=== PATIENT | female | born 1985 | race Caucasian/White ===

== ENCOUNTER 2024-09-27 15:13 | Inpatient (IN) | payer BC, MEDICAID, SELFPAY ==
[2024-09-27 15:16] VITALS: BP 140/78; PULSE 91; RESP 16; TEMP 37; O2SAT 97; BMI 23.6
--- NOTE | 2024-09-27 15:24 | W.ED.PSYCHS ---
HPI - Psych General: Chief Complaint: Psychiatric Symptoms Stated Complaint: 96 Time Seen by Provider: 09/27/24 15:14 Source: patient and police Limitations: no limitations History of Present Illness: 39-year-old female who is here with police under 96-hour hold she was placed on 960 hold for hallucinations but states she has been paranoid making threats. Patient here does have loose thoughts she does admit to using methamphetamine yesterday. Denies suicidality at this time. Associated symptoms: Reports delusions Related Data Home Medications ?Medication ?Instructions ?Recorded ?Confirmed No Known Home Medications 09/27/24 09/27/24 Allergies Allergy/AdvReac Type Severity Reaction Status Date / Time celecoxib (From Celebrex) Allergy Unknown Verified 09/27/24 15:20 Review of Systems Const: Denies: fever(s), chills, body aches or change in appetite ENMT: Denies: throat pain or dental pain Card: Denies: chest pain Resp: Denies: dyspnea GI: Denies: abdominal pain, nausea, vomiting or diarrhea Musc: Denies: neck pain or back pain Skin/Breast: Denies: rash Neuro: Denies: headache(s) Psych: Reports: irritability and paranoia Physical Exam Const: COMMON NORMALS: no acute distress and patient oriented x3 HENMT: COMMON NORMALS: normocephalic and atraumatic HEAD & SCALP: normocephalic and atraumatic Eye: COMMON NORMALS: conjunctivae normal CONJUNCTIVA: Yes conjunctivae normal Neck/C-Spine: COMMON NORMALS: full ROM and supple Chest: COMMONS NORMALS: normal inspection of the chest Resp: COMMON NORMALS: normal respiratory effort Cardio: COMMON NORMALS: regular rate RATE: regular rate Extremity: COMMON NORMALS: normal to inspection and full ROM Neuro: COMMON NORMALS: patient oriented x3, moves all extremities and no focal motor deficits Psych: COMMON NORMALS: cooperative SPEECH: Yes excessive MOOD & AFFECT: Yes elevated mood THOUGHT CONTENT: Yes delusions Skin: COMMON NORMALS: no rashes or lesions noted and no wounds GENERAL SKIN EXAM: no rashes or lesions noted Course Vital Signs: Vital signs: Vital Signs Temperature 98.6 F 09/27/24 15:16 Pulse Rate 91 09/27/24 15:16 Respiratory Rate 16 09/27/24 15:16 Blood Pressure 140/78 09/27/24 15:16 Pulse Oximetry 97 04/02/25 15:16 Oxygen Delivery Me thod Room Air 09/27/24 15:16 MDM - Psych Medical Decision Making Patient presents here with acute psychosis paranoia she is placed under court ordered 96-hour hold she does have recent meth abuse as well patient is quite paranoid here spoke to psychiatrist will admit to the psych [facility]. Medical Records I reviewed the patient's medical records. Lab Data I reviewed the patient's lab results. 09/27/24 16:06 09/27/24 16:06 Laboratory Results WBC 5.42 10^3/uL (3.29-11.43) 09/27/24 16:06 RBC 3.48 10^6/uL (3.85-5.65) L 09/27/24 16:06 Hgb 11.00 g/dL (11.27-16.99) L 09/27/24 16:06 Hct 33.4 % (36-47) L 09/27/24 16:06 MCV 96.0 fl (85-98) 09/27/24 16:06 MCH 31.6 pg (27-33) 09/27/24 16:06 MCHC 32.9 g/dL (30-55) 09/27/24 16:06 RDW 12.4 % (12.1-15.1) 09/27/24 16:06 Plt Count 311 10^3/cmm (157-399) 09/27/24 16:06 MPV 8.9 fL (7.4-10.4) 09/27/24 16:06 Neut % (Auto) 43.2 % 09/27/24 16:06 Lymph % (Auto) 47.4 % 09/27/24 16:06 Childress % (Auto) 7.2 % 09/27/24 16:06 Eos % (Auto) 1.1 % 09/27/24 16:06 Baso % (Auto) 0.9 % 09/27/24 16:06 Neut # (Auto) 2.34 10^3/uL (1.8-7.7) 09/27/24 16:06 Lymph # (Auto) 2.6 10^3/uL (0.8-4.8) 09/27/24 16:06 Childress # (Auto) 0.4 10^3/uL (0.2-0.9) 09/27/24 16:06 Eos # (Auto) 0.1 10^3/uL (0.0-0.8) 09/27/24 16:06 Baso # (Auto) 0.1 10^3/uL (0.0-0.1) 09/27/24 16:06 Nucleated RBC % (auto) 0 % 09/27/24 16:06 Nucleated RBCs # 0.0 /100WBC 09/27/24 16:06 No radiology studies performed this visit Discharge Plan Discharge Patient Disposition: Admitted As Inpatient Clinical Impression: Acute psychosis, Drug-induced psychotic disorder Condition: Stable Prescriptions: No Action No Known Home Medications Referrals: [facility] [Other] Print Language: Romansh Coding Level of Care Code ED Visual Communications Instructor for Anshu Taylor
[2024-09-27 16:30] LABS: Basophils # 0.1 10^3/uL (0.0-0.1); Basophils % 0.9 %; Eosinophils # 0.1 10^3/uL (0.0-0.8); Eosinophils % 1.1 %; Hematocrit 33.4 % (36-47); Lymphocytes # 2.6 10^3/uL (0.8-4.8); Lymphocytes % 47.4 %; Mean Corpuscular HGB Conc 32.9 g/dL (30-55); Mean Corpuscular Hemoglobin 31.6 pg (27-33); Mean Platelet Volume 8.9 fL (7.4-10.4); Monocytes # 0.4 10^3/uL (0.2-0.9); Monocytes % 7.2 %; Neutrophils # 2.34 10^3/uL (1.8-7.7); Neutrophils % 43.2 %; Nucleated Red Blood Cells % 0 %; Platelet Count 311 10^3/cmm (157-399); Red Blood Count 3.48 10^6/uL (3.85-5.65); Red Cell Distribution Width 12.4 % (12.1-15.1); White Blood Count 5.42 10^3/uL (3.29-11.43)
--- NOTE | 2024-09-27 16:33 | PC.PHAR ---
Addendum entered by Janine Campbell 09/27/24 16:34: Pt is asking who her nurse is, why she is here instead of [facility], and why the transport person is not an officer. Original Note: Pt wants to use Suki Nunn E Sima Ceballos, Zheng Gutierres. [id number] [facility] [phone]
[2024-09-27 16:52] LABS: Alanine Aminotransferase 12 U/L (0-33); Albumin Level 4.2 g/dL (3.5-5.2); Alkaline Phosphatase 43 U/L (35-105); Anion Gap 13.6 (5-19); Aspartate Amino Transferase 18 U/L (0-32); Blood Urea Nitrogen 16 mg/dL (6-20); Calcium 8.7 mg/dL (8.5-10.5); Carbon Dioxide 23 mmol/L (22-29); Chloride 102 mmol/L (98-107); Creatinine Clr Calc Pharmacy 120.3444; Globulin 2.7 g/dL (1.3-4.6); Glomerular Filtration Rate 111.9 mL/min (90-130); Glucose 83 mg/dL (65-115); Osmolality Calculated 280 mOsm/kg (285-295); Potassium 3.6 mmol/L (3.5-5.1); Sodium 135 mmol/L (136-145); Total Bilirubin 0.3 mg/dL (0.15-1.2); Total Protein 6.9 g/dL (6.6-8.7)
[2024-09-27 16:53] LABS: Acetaminophen < 5.0 ug/mL (10-30); Alcohol Level < 10 mg/dL (0-10); Salicylate < 0.3 mg/dL (3-10)
--- NOTE | 2024-09-27 17:53 | PC.NURSE ---
PATIENT HAS REFUSED TO URINATE AT THIS TIME.
[2024-09-27 19:57] VITALS: BP 135/87; PULSE 80; RESP 18; TEMP 37.1; O2SAT 99
[2024-09-27] MEDS: nicotine 2 mg Gum BUCCAL (20:10)
[2024-09-27 20:13] VITALS: BP 135/87; PULSE 80; RESP 18; TEMP 37.1; O2SAT 99
--- NOTE | 2024-09-27 21:18 | PC.NURSE ---
Pt. admitted from ED on a 96 hr hold. Spouse and child report she is having hallucinations. Pt. denies any hallucinations and says she is being held against her will and does not have any idea as to why she would be here. Pt. was informed on the rules on the unit by ADAIR, the pt. then re-read the rules and was going to sign the papers, but instead began writing comments in the signature place. Pt. came up asking for a drink and signee asked if she still had her cup and signee explained that we reuse the same cup each day and pt. said ok, well that's not proper dietary protocol. Pt. answered some of the nursing assessment questions, but was unwilling to cooperative with questions. Signee explained to pt. that staff ask all pt.'s the same questions. Pt. does smell like alcohol when pt. came up to the window asking for a drink.
--- NOTE | 2024-09-28 01:11 | PC.NURSE ---
Pt. came up to the nurses station asking if she could take shower. Signee got pt. her box, towel, washcloth and directed her to the gomez shower informing her that the showers in the room did not work, pt. asked why and gildardo informed pt. that it would leak downstairs. Pt. went into the shower and asked when the last time the shower had not been cleaned. Signee informed her that the showers was cleaned once or twice a day. Pt. did not want to take a shower in that shower, and walked back down to her room. Security sitting with another pt. heard something that sounded like furniture being moved around. Signee went to do a round to observe what was going on. Pt. was looking out the window, then a few min later the WORKDAY FINANCIALS CONSULTANT does a round and pt. had turned on the shower in her room. WORKDAY FINANCIALS CONSULTANT and signee informed her that was not allowed that she had been told the showers did not work and pt. stated, but they do work, you told me they would not even turn on. All the while the shower in pt.'s room is running. Signee told pt. she could either take a shower or not in the hallway shower.
--- NOTE | 2024-09-28 01:21 | PC.NURSE ---
pt asked for items to take a shower. RN gave her the items pt then refused to use unit shower because it is dirty . Pt went to her room and was making noise this OBSTETRICS AND GYNECOLOGY PROFESSOR and RN went to pt room. Pt was acting as though she was on an ear pieece Pt then turned on shower in room after being told that it could not be used due to it leaking into the downstairs. Pt argued was RN about not being told about it leaking. Pt then closed door to her room and this OBSTETRICS AND GYNECOLOGY PROFESSOR opened door and educated pt that doors could not be fully closed. Pt then stated is that a rule? where does it say that? This OBSTETRICS AND GYNECOLOGY PROFESSOR told pt it was in her admit packet pt then asked what page is it on? Pt is now carring the pt admit inbooklet around with her.
--- NOTE | 2024-09-28 01:36 | PC.NURSE ---
Pt. just came out of her room and walked down the gomez looking out all the windows and into the doors, then went into the area where the seclusion room is. Pt. was told she could not be down there that there is a pt.'s room down there. Pt. then snorted like a pig.
--- NOTE | 2024-09-28 02:26 | PC.NURSE ---
pt. keeps shutting her door all the way. Security informed her again that the door had to be cracked. Pt. wants to be shown in writing this is a policy.
--- NOTE | 2024-09-28 06:56 | PC.NURSE ---
vs not collected charge notified resp 16
[2024-09-28] MEDS: nicotine 2 mg Gum BUCCAL ×3 (09:00→18:02)
--- NOTE | 2024-09-28 09:45 | PC.NURSE ---
EVASIVE WITH ASSESSMENT. DENIES SI/HI AND AVH AT THIS TIME. PT STATED I CAN'T TALK TO YOU UNIL I WAKE UP MY EYES. DENIES PAIN. PT WILL NOT GIVE ANYMORE INFORMATIONS. SUPPORT VOICED.
[2024-09-28] MEDS: nicotine 4 mg lozenge MUCOUS MEM ×2 (11:12→19:53)
--- NOTE | 2024-09-28 11:48 | PC.NURSE ---
pt moved to [facility] for salazar ho.
[2024-09-28 12:15] VITALS: BP 109/67; PULSE 70; RESP 16; TEMP 37.1; O2SAT 100
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
--- NOTE | 2024-09-28 16:28 | PC.NURSE ---
patients family was here during visiting hour, pt stated when they were bringing her in yesterday pt did methamphetamine in front of her son. and if she gets out she will go right back on it. pt came up to nurses station after visitors left asking who were the people that came to see her and asked if they signed in? when shown the paperwork where they signed in pt shook her saying that wasn't them.
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
[2024-09-28] MEDS: acetaminophen 325 mg Tablet 650 MG PO (18:04)
[2024-09-28 20:39] VITALS: BP 99/54; PULSE 78; RESP 16; TEMP 36.9; O2SAT 100
[2024-09-29] MEDS: acetaminophen 325 mg Tablet 650 MG PO ×3 (03:50→18:34)
[2024-09-29 06:00] VITALS: BP 94/53; PULSE 70; RESP 17; TEMP 36.9; O2SAT 99
[2024-09-29] MEDS: nicotine 2 mg Gum BUCCAL (06:47)
[2024-09-29] MEDS: nicotine 4 mg lozenge MUCOUS MEM ×4 (09:42→18:32)
[2024-09-29 10:12] LABS: HCG Qualitative Urine. Negative (Negative)
[2024-09-29 10:36] LABS: Amphetamines Screen Urine Positive (Negative); Barbiturates Screen Urine Negative (Negative); Benzodiazepines Screen Urine Negative (Negative); Cocaine Screen Urine Negative (Negative); Opiate Screen Urine Negative (Negative); PCP Screen Urine Negative (Negative); THC Screen Urine Negative (Negative)
[2024-09-29 14:00] VITALS: BP 92/52; PULSE 69; RESP 15; TEMP 36.7; O2SAT 99
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
[2024-09-29 20:32] VITALS: BP 98/64; PULSE 70; RESP 18; TEMP 37.1; O2SAT 99
[2024-09-30] MEDS: acetaminophen 325 mg Tablet 650 MG PO ×2 (03:09→16:56)
[2024-09-30 06:00] VITALS: BP 98/67; PULSE 68; RESP 18; TEMP 36.6; O2SAT 98
[2024-09-30] MEDS: nicotine 4 mg lozenge MUCOUS MEM ×6 (08:30→22:09)
[2024-09-30 14:00] VITALS: BP 87/49; PULSE 69; RESP 17; O2SAT 98
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
[2024-09-30 21:22] VITALS: BP 98/68; PULSE 88; RESP 18; TEMP 37.2; O2SAT 96
[2024-10-01 06:00] VITALS: BP 90/58; PULSE 66; RESP 18; TEMP 36.9; O2SAT 100; BMI 24.0
[2024-10-01] MEDS: nicotine 4 mg lozenge MUCOUS MEM ×6 (06:08→18:42)
--- NOTE | 2024-10-01 11:59 | P.NPUPN_ITS ---
Subjective NPU 2 Subjective: Patient presented today reporting that she is doing fine and she does not really need to be here. 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 He is to be quite isolative and mostly staying in her room. He continued to discuss the risks9, benefits and alternatives of starting an antipsychotic for her psychosis and she may have understood and denied interest in starting medication because she denies that what was witnessed on her admission truly happened. Mental Status Exam 2 MSE Comments: This is a slender white female in hospital scrubs with limited grooming and eye contact. No abnormal movements except for mild psychomotor retardation. Somewhat cooperative with exam in mild to moderate distress. Her speech was normal in rate, rhythm and prosody. Mood described as fine, affect odd. Thought process was linear but illogical. Thought content. Patient denied suicidal or homicidal ideation. She did not appear to be responding to internal stimuli. She denied auditory or visual hallucinations. There were no delusions reported but she had significant evidence of odd, paranoid and persecutory thinking. She was alert and oriented to person and place. Recent and remote memory appeared poor at this time. Her insight is poor. Judgment was poor. Impulse control was impaired as well. Vitals/I&O/Wt Last Vital Signs Temp 98.5 F 10/01/24 06:00 Pulse 66 10/01/24 06:00 Resp 18 10/01/24 06:00 BP 90/58 10/01/24 06:00 Pulse Ox 100 10/01/24 06:00 O2 Del Method Room Air 10/01/24 06:00 Weight last 48 hrs Weight 65.544 kg Data NPU 09/27/24 16:06 09/27/24 16:06 A&P Assessment and plan (1) Acute psychosis: (2) Drug-induced psychotic disorder: Plan This is a 39-year-old white female who presented as a poor historian with a history of methamphetamine addiction per family reports but refusing UDS and appearing psychotic on interview. She appeared somewhat paranoid and unable to focus on interview and more focused on her son and ex- being kidnappers 1.? Recommend Abilify or Invega for psychosis. 2.? Recommend sober living treatment at the highest level of care to which the patient is willing to commit. 3.??Encourage individual, group and milieu therapy. 4.??Continue every 15 minute checks for safety. 5. Obtained UDS and was positive for amphetamines. PDMP PDMP Reviewed: Not Reviewed Involuntary Hold Information 2 Hold Status: Legal Status: 96 Hour Hold Date/Time Hold Expires: 10/03/2024 @ 1530 Attestations NPU 2 Medical Necessity Statement*: Inpatient hospitalization is medically necessary and the clinically appropriate intervention at this time. We will monitor medications and make changes as indicated. Likely length of stay 7-10 days. 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
[2024-10-01 14:00] VITALS: BP 85/48; PULSE 70; RESP 16; O2SAT 98
[2024-10-01] MEDS: acetaminophen 325 mg Tablet 650 MG PO ×2 (14:32→17:44)
--- NOTE | 2024-10-01 15:51 | PC.NURSE ---
Pt stated that she wanted to be transferred to another hospital, pt was upset that she couldn't have nicotine but every 2 hours.
[2024-10-01] MEDS: OLANZapine 5 mg ODT PO (17:47)
[2024-10-01 19:39] VITALS: BP 92/58; PULSE 80; RESP 16; TEMP 36.9; O2SAT 99
[2024-10-02 06:00] VITALS: BP 93/62; PULSE 57; RESP 17; TEMP 36.8; O2SAT 99
[2024-10-02] MEDS: nicotine 4 mg lozenge MUCOUS MEM ×7 (06:52→20:28)
[2024-10-02] MEDS: OLANZapine 5 mg ODT PO ×2 (13:40→20:28)
[2024-10-02 14:00] VITALS: BP 96/62; PULSE 78; RESP 16; TEMP 37.1; O2SAT 99
--- NOTE | 2024-10-02 14:09 | P.NPUPN_ITS ---
Subjective NPU 2 Subjective: 39-year-old female admitted with psychos is, positive for amphetamine on admission. She had continued to appear guarded stating that her son and ex had brought her here for unspecified reasons. She denied feeling anxious or depressed and stated that she had no idea why she needed to be here. 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 She had minimized any significant problems with any legal issues although she had acknowledged that she had a charge for possession of drug. She denied feeling anxious or depressed and stated that she did not need any medications at this time. She had remained somewhat isolative on the milieu. Mental Status Exam 2 MSE Comments: This is a slender white female in hospital scrubs with limited grooming and eye contact. No abnormal involuntary motor movements except for mild psychomotor retardation. She was partially cooperative with exam in mild to moderate distress. Her speech was normal in rate, rhythm and prosody. Mood described as fine, affect was odd and subdued Thought process was linear but illogical. Thought content. Patient denied suicidal or homicidal ideation. She did not appear to be responding to internal stimuli. She denied auditory or visual hallucinations. There were no delusions reported but some paranoia appreciated. She was alert and oriented to person and place. Recent and remote memory appeared poor at this time. Her insight is poor. Judgment was poor. Impulse control was impaired as well. Vitals/I&O/Wt Last Vital Signs Temp 98.3 F 10/02/24 06:00 Pulse 57 L 10/02/24 06:00 Resp 17 10/02/24 06:00 BP 93/62 10/02/24 06:00 Pulse Ox 99 10/02/24 06:00 O2 Del Method Room Air 10/02/24 06:00 Weight last 48 hrs Weight 65.544 kg Data NPU 09/27/24 16:06 09/27/24 16:06 A&P Assessment and plan (1) Acute psychosis: (2) Drug-induced psychotic disorder: Plan This is a 39-year-old white female who presented as a poor historian with a history of methamphetamine addiction per family reports but refusing UDS and appearing psychotic on interview. She appeared somewhat paranoid and unable to focus on interview and more focused on her son and ex- being kidnappers 1.? Recommend Abilify or Invega for psychosis. 2.? Recommend sober living treatment at the highest level of care to which the patient is willing to commit. 3.??Encourage individual, group and milieu therapy. 4.??Continue every 15 minute checks for safety. 5. Obtained UDS and was positive for amphetamines. 6. Patient remains psychotic at this time and refusing medications. PDMP PDMP Reviewed: Not Reviewed Involuntary Hold Information 2 Hold Status: Legal Status: 96 Hour Hold Date/Time Hold Expires: 10/03/2024 @ 1530 Attestations NPU 2 Medical Necessity Statement*: Inpatient hospitalization is medically necessary and the clinically appropriate intervention at this time. We will monitor medications and make changes as indicated. Likely length of stay 7-10 days. 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
[2024-10-02] MEDS: acetaminophen 325 mg Tablet 650 MG PO (18:22)
[2024-10-02 20:12] VITALS: BP 116/69; PULSE 61; RESP 18; O2SAT 100
[2024-10-02] MEDS: trazodone 50 mg Tablet PO (20:28)
[2024-10-03 06:00] VITALS: BP 83/52; PULSE 69; RESP 16; TEMP 36.8; O2SAT 99
[2024-10-03] MEDS: nicotine 4 mg lozenge MUCOUS MEM ×6 (07:51→19:03)
[2024-10-03] MEDS: acetaminophen 325 mg Tablet 650 MG PO (10:35)
[2024-10-03] MEDS: OLANZapine 5 mg ODT PO ×2 (10:35→19:03)
[2024-10-03 14:00] VITALS: BP 102/61; PULSE 84; RESP 18; O2SAT 100
[2024-10-03] MEDS: haloperidol 5 mg Tablet PO (14:59)
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
[2024-10-03] MEDS: trazodone 50 mg Tablet PO (19:03)
[2024-10-03 20:06] VITALS: BP 83/45; PULSE 74; RESP 18; TEMP 36.9; O2SAT 98
[2024-10-04 06:00] VITALS: BP 128/77; PULSE 79; RESP 18; TEMP 36.6; O2SAT 96
[2024-10-04] MEDS: nicotine 4 mg lozenge MUCOUS MEM ×8 (08:03→22:10)
[2024-10-04] MEDS: OLANZapine 5 mg ODT PO (10:01)
[2024-10-04] MEDS: haloperidol 5 mg Tablet PO ×2 (12:12→20:22)
[2024-10-04 14:00] VITALS: BP 87/49; PULSE 62; RESP 16; TEMP 36.6; O2SAT 98
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
[2024-10-04] MEDS: buprenorphine-naloxone 4-1 mg Film 1 EACH SUBLINGUAL (17:19)
[2024-10-04 20:06] VITALS: BP 102/66; PULSE 79; RESP 18; TEMP 36.7; O2SAT 99
[2024-10-04] MEDS: trazodone 50 mg Tablet PO (20:22)
[2024-10-05 06:00] VITALS: BP 95/48; PULSE 71; RESP 20; TEMP 36.9; O2SAT 94
[2024-10-05] MEDS: nicotine 4 mg lozenge MUCOUS MEM ×7 (06:17→21:50)
[2024-10-05] MEDS: buprenorphine-naloxone 4-1 mg Film 1 EACH SUBLINGUAL ×2 (07:58→17:36)
[2024-10-05 14:00] VITALS: BP 117/74; PULSE 70; RESP 16; TEMP 37.2; O2SAT 98
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
[2024-10-05] MEDS: trazodone 50 mg Tablet PO (19:36)
[2024-10-05 20:08] VITALS: BP 87/52; PULSE 69; RESP 16; TEMP 37.1; O2SAT 96
[2024-10-05] MEDS: haloperidol 5 mg Tablet PO (20:36)
[2024-10-06] MEDS: nicotine 4 mg lozenge MUCOUS MEM ×3 (05:58→11:49)
[2024-10-06 06:00] VITALS: BP 82/48; PULSE 59; RESP 16; TEMP 36.8; O2SAT 97
[2024-10-06] MEDS: buprenorphine-naloxone 4-1 mg Film 1 EACH SUBLINGUAL (09:06)
[2024-10-06 10:13] VITALS: BP 108/79; PULSE 73; RESP 16; TEMP 36.6; O2SAT 100
[2024-10-06 10:14] VITALS: BP 109/70; PULSE 73; RESP 16; TEMP 36.2; O2SAT 100
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
== END 2024-10-06 12:18 | disposition home or self-care (01) | DRG 897 ==
LOC: ER 17:56 → NP 18:39
PROVIDERS: Admitting Provider Psychiatry & Neurology Psychiatry; Emergency Provider Emergency Medicine; Visit Provider Psychiatry & Neurology Psychiatry
DX: F19.959 Other psychoactive substance use, unspecified with psychoactive substance-induced psychotic disorder, unspecified (principal)
CPT/HCPCS: 36415; 80053; 80306; 80307; 81025; 85025; 97150; 97165; 99285; J0573; J9999

== ENCOUNTER → 2025-01-16 08:02 | Outpatient (BNVA) | payer MEDICAID, SELFPAY | PROVIDERS: Visit Provider Nurse Practitioner Women's Health | DX: N91.2 Amenorrhea, unspecified (principal); N92.6 Irregular menstruation, unspecified | CPT/HCPCS: 80053; 81025; 82670; 83001; 84146; 84439; 84443; 84481; 84702; 85025 ==

== ENCOUNTER → 2025-01-17 08:17 | Outpatient (BNVA) | payer MEDICAID, SELFPAY | PROVIDERS: Visit Provider Nurse Practitioner Women's Health | DX: F19.11 Other psychoactive substance abuse, in remission (principal) | CPT/HCPCS: 80307 ==

== ENCOUNTER → 2025-01-23 12:45 | Outpatient (BNVA) | payer MEDICAID, SELFPAY | PROVIDERS: Visit Provider Nurse Practitioner Women's Health | DX: N92.6 Irregular menstruation, unspecified (principal) | CPT/HCPCS: 76830; 76857 ==

== ENCOUNTER 2025-02-02 10:13 | Emergency (ER) | payer MEDICAID, SELFPAY ==
--- OUTSIDE RECORDS SUMMARY | 2020-04-10 03:44 | XMS_ITS | Continuity of Care Document ---
Author Organization [facility] Address [id number], [place] [address] Phone Care Team Providers Care Finishing Lab Technician Name Role Phone Unavailable Unavailable Unavailable Allergies, Adverse Reactions, Alerts Substance Reaction Status Criticality celecoxib Edema, generalized Active No Inform ation Medications Medication Instructions Dosage Effective Dates (start - stop) Status Comments GABAPENTIN 800MG TABLETS TAKE 1 TABLET BY MOUTH FOUR TIMES DAILY 800 MG - Active ALBUTEROL 0.042%(1.25MG/3ML) 25X3ML INHALE CONTENTS OF 2 VIALS VIA NEBULIZER 3 TO 4 TIMES DAILY - Active amitriptyline 25 mg tablet take 1 tablet by oral route every day at bedtime 25 MG - Active Effexor XR 150 mg capsule,extended release take 1 capsule by oral route every day 150 MG - Active doxepin 10 mg capsule take 1 capsule by oral route 3 times every day 10 MG - Active clonidine HCl 0.1 mg tablet take 1 tablet by oral route 3 times daily as needed for withdraw symptoms for up to 10 days - Active promethazine 12.5 mg tablet take 1 tablet by oral route 3 times daily as needed for withdraw symptoms for up to 10 days - Active cetirizine 10 mg tablet take 1 tablet by oral route every day as needed 10 MG - Active Miralax 17 gram/dose oral powder take (17G) by oral route every day mixed with 8 oz. water, juice, soda, coffee or tea - Active Colace 100 mg capsule take 1 capsule by oral route every 2 days at bedtime as needed 100 MG - Active nicotine 14 mg/24 hr daily transdermal patch apply 1 patch by transdermal route every day 14 MG - Active nicotine 7 mg/24 hr daily transdermal patch apply 1 patch by transdermal route every day 7 MG - Active use after the 14mcg patches complete Advair HFA 115 mcg-21 mcg/actuation aerosol inhaler inhale 2 puff by inhalation route 2 times every day in the morning and evening 2.00 puff - Active albuterol sulfate HFA 90 mcg/actuation aerosol inhaler inhale 2 puff by inhalation route every 4 - 6 hours as needed 180 MCG - Active gabapentin 800 mg tablet take 1 tablet by oral route 4 times every day 800 MG - No Longer Active As per patient privacy policy some of the clinical information may not be visible. Procedures Procedure Date OFFICE/OUTPATIENT VISIT EST COMPREHEN METABOLIC PANEL COMPLETE CBC W/AUTO DIFF WBC LIPID PANEL ROUTINE VENIPUNCTURE Finalize Template Workaround OFFICE/OUTPATIENT VISIT, EST (1371) Finalize Template Workaround OFFICE/OUTPATIENT VISIT, EST (1371) Finalize Template Workaround OFFICE/OUTPATIENT VISIT, EST (1371) Limited Oral Evaluation Problem Focused Intraoral Periapical First Film Extraction, Erupted Tooth Or Exposed Britni t (Elevati EDR Approval Note Finalize Template Workaround OFFICE/OUTPATIENT VISIT, EST (1371) Finalize Template Workaround OFFICE/OUTPATIENT VISIT, EST (1371) Finalize Template Workaround OFFICE/OUTPATIENT VISIT EST X-ray Knee - 3 Views Duplicate Encounter Finalize Template Workaround OFFICE/OUTPATIENT VISIT, EST (1371) OFFICE/OUTPATIENT VISIT EST Finalize Template Workaround OFFICE/OUTPATIENT VISIT, EST (1371) OFFICE/OUTPATIENT VISIT EST Finalize Template Workaround OFFICE/OUTPATIENT VISIT, EST (1371) Vision svcs frames purchases Spherocylindr 4.00d/12-2.00d Spherocylindr 4.00d/12-2.00d FITTING OF SPECTACLES Finalize Template Workaround PSYCH DIAG EVAL W/MED SRVCS (94) 2019 REFRACTION EYE EXAM ESTABLISHED PAT OFFICE/OUTPATIENT VISIT EST URINALYSIS AUTO W/O SCOPE PSYTX PT&/FAMILY 30 MINUTES OFFICE/OUTPATIENT VISIT, NEW Advance Directives Directive Yes / No Effective Date File Name No Information Encounters Encounter Description Practice Location Reason(s) For Visit Diagnoses Date Provider Providers Copied on Encounter [facility], [id number] [place], [id number], [place] tel:[phone] Family Medicine F1 No Information 0 No Information [facility], [id number] [place], [id number], [place] tel:[phone] Family Medicine F2 No Information Feb-0 0 No Information [facility], [id number] [place], [address], [place] tel:[phone] Behavioral Medicine F2 No Information Jan-2 0 No Information [facility], [id number]- [facility] [place], [address], [place] tel:[phone] Family Medicine F1 No Information 0 Virgilio Amin. [address] , [place], [place], [address], [place]. tel:[phone] [facility], [id number] 5203884MV- [facility], [place], [place], [address], [place] tel:[phone] Family Medicine F1 No Information 0 No Information [facility], [id number] 8637831BWVerg[place], [address], [place] tel:[phone] Family Medicine F2 No Information 0 No Information OFFICE/OUTPA TIENT VISIT EST [facility], [id number] 87736[place]KSV[place], [place], [address], [place] tel:[phone] Family Medicine F2 C/O possible cyst in rectum area (chief complaint)C /O RT knee pain (chief complaint)S inus congestion w/o drainage (chief complaint)A bdominal Pain (chief complaint) Right anterior knee painChronic bilateral low back pain with bilateral sciaticaLumba go with sciatica, right sideOther chronic painBilateral hip painPain in left hipAdenomatou s polyp of colon, unspecified part of colonLeft lower quadrant abdominal painFamily history of colon cancerSeasona l allergies 0 No Information [facility], [id number] 66590[place]OAV[place], [address], [place] tel:[phone] Behavioral Medicine F2 Medication (chief complaint)a nxiety (chief complaint)i nsomnia (chief complaint) KIEL (generalized anxiety disorder)Post traumatic stress disorderPrima ry insomniaTobac co abuse 0 No Information [facility], [id number] 7022098YOVerg[place], [place], [address], [place] tel:[phone] Behavioral Medicine F2 Follow Up of LYNN (chief complaint)a nxiety (chief complaint) KIEL (generalized anxiety disorder)Post traumatic stress disorder 0 No Information [facility], [address] [id number] 8174482DH- [place], [address], [place] tel:[phone] Behavioral Medicine F2 Follow Up of LYNN (chief complaint) 0 No Information [facility], [id number] 1724[place]DIVerg[place], [place], [address], [place] tel:[phone] [facility] Encounter for dental exam and cleaning w/o abnormal findings 0 Jordi Deleon. [address] [place], [address], [place]. tel:[phone] Referring Provider: Adrienne Bacon, [address] [place], [address]. tel:[phone] [facility], [address] [id number] 5784005NAVerg[place], [place], [address], [place] tel:[phone] Behavioral Medicine F2 Follow Up of LYNN (chief complaint)I nsomnia (chief complaint) Tobacco abusePrimary insomnia 0 No Information [facility], [id number] 4383890XSVergennes, [place], [address], [place] tel:[phone] Behavioral Medicine F2 Follow Up of LYNN (chief complaint) Constipation, unspecified constipation typeGAD (generalized anxiety disorder)Post traumatic stress disorderTobac co abuse 0 No Information [facility], [address] [id number] 9461042ZBVergennes, [place], [address], [place] tel:[phone] Behavioral Medicine F2 Follow Up of LYNN (chief complaint) Tobacco abuse 0 No Information [facility], [address] [id number] 3543970XFVergennes, [place], [address], [place] tel:[phone] Family Medicine F1 Pain in right knee Aug-0 0 No Information [facility], [address] [id number] 9697606MOVergennes, [place], [address], [place] tel:[phone] Family Medicine F1 No Information Aug-0 0 Apollo Canales. [address], [place], [address], [place]. tel:[phone] Referring Provider: Parker Bustillos, [address] [place], [address] . tel:[phone] [facility], [address] [id number] 1735269KAVergennes, [place], [address], [place] tel:[phone] [facility] Follow Up of LYNN (chief complaint)C onstipation (chief complaint) KIEL (generalized anxiety disorder)Cons tipation, unspecified constipation type Aug-0 0 No Information OFFICE/OUTPA TIENT VISIT EST [facility], [id number] [id number], [address], [place] tel:[phone] Family Medicine F1 Follow Up of COPD (chief complaint)U RI (chief complaint) Acute bronchitis due to other specified organismsToba accounts receivable collector abuseRight anterior knee pain Aug-0 0 No Information [facility], [address] [id number] 8395700OGTo[place], [address], [place] tel:[phone] [facility] KIEL (generalized anxiety disorder)Post traumatic stress disorderTobac co abuseBipolar 1 disorder, manic, mild Jul- 0 No Information [facility], [id number] 5787564HBTo[place], [address], [place] tel:[phone] [facility] Follow Up of LYNN (chief complaint) Jul- 0 No Information OFFICE/OUTPA TIENT VISIT EST [facility], [address] [id number]- [place], [address], [place] tel:[phone] Family Medicine F1 Cough (chief complaint) COPD exacerbation Feb- 0 No Information [facility], [address] Dpxlj850N4 8804502YKVergennes, [place], [address], [place] tel:[phone] [facility] anxiety (chief complaint)P sych FU (chief complaint) KIEL (generalized anxiety disorder)Post traumatic stress disorderTobac co abuseBipolar 1 disorder, manic, mild Feb- 0 No Information [facility], [address] [id number] 9883901OPTo[place], [place], [address], [place] tel:[phone] Vision F1 Encounter for fit/adjst of spectacles and contact lenses 0 Jay Jon. [address], [place], [address], [place]. tel:[phone] Referring Provider: Jase Thompson, [address] [place], [address] . tel:[phone] [facility], [address] [id number] 4226092OOTo[place], [place], [address], [place] tel:[phone] Behavioral [facility] Integration Initial LYNN Consult (chief complaint) Bipolar 1 disorder, manic, mildPost traumatic stress disorderGAD (generalized anxiety disorder)Toba accounts receivable collector abuse Feb-0 0 No Information [facility], [address] [id number] 5467568HJTo[place], [address], [place] tel:[phone] Vision F1 blurry vision (chief complaint) HeadacheRegul ar astigmatism, bilateralHype rmetropia, bilateral Feb-0 3-202 0 Jay Jase. [address], [place], [address], [place]. tel:[phone] Referring Provider: Jase Thompson, [address] [place], [address] . tel:[phone] OFFICE/OUTPA TIENT VISIT [facility], [id number] 0503932GM- [place], [address], [place] tel:[phone] Family Medicine F1 dysuria, flank pain, urinary retention (chief complaint) Dysuria 0 No Information PSYTX PT&/FAMILY 30 MINUTES [facility], [address] [id number] 9558440[facility]RS[facility], [place], [place], [address], [place] tel:[phone] Behavioral Health Integration Post traumatic stress disorder 0 No Information OFFICE/OUTPA TIENT VISIT, [facility], [address] [id number] 7572767JKTo[place]aja, [place], [address], [place] tel:[phone] Family Medicine F1 Establish Care (chief complaint) Post traumatic stress disorderBipol ar 1 disorder, manic, mildObesity (BMI 35.0-39.9 without comorbidity) 0 No Information [facility], [address]qdeu[address]1 3615722ITVergennes, [place], [address], [place] tel:[phone] Family Medicine F1 Lack of adequate foodOther problems related to social environmentEx treme povertyOther problems related to housing and economic circumstances Alcoholism and drug addiction in family [facility]. [address], [place], [address], [place]. tel:[phone] As per patient privacy policy some of the clinical information may not be visible. Family History Family Member Type Diagnosis Age At Onset Mother Problem (finding) Anxiety Mother Problem (finding) Bipolar Brother Problem (finding) Addiction Father Problem (finding) hypertension Mother Problem (finding) Addiction Payers Payer name Insurance type Covered libertarian ID Teresita rylannimco([place]) Sue [facility] Health Plan CI [id number] Social History Type Description Quantity Date Captured Comments Sex Female Smoking Status No Information Sexual Orientation Heterosexual Gender Identity Female Chief Complaint And Reason For Visit No Information Reason For Referral Reason For Referral No Information Plan Of Treatment Date Type Action Status Goal Tobacco cessation counseling completed Goal Tobacco cessation counseling completed Goal Tobacco cessation counseling completed Goal Tobacco cessation counseling completed Goal Tobacco cessation counseling completed Goal Tobacco cessation counseling completed Goal Tobacco cessation counseling completed Referral Ordered: Referrals: Diagnostic Coloscopy. Location: [facility]. Evaluate and treat. Diagnostic testing ordered Referral Ordered: Referrals: Location: [facility] ordered Referral Ordered: Referrals: Orthopedc iSurgery. Location: [facility] ordered Referral Ordered: Referrals: Location: [facility] ordered History Of Present Illness Encounter Date Complaint History Of Prese nt Illness Sinus congestion w/o drainage No se/face has been congested Eyes are watery, throat is scratchy Has been using TYlenol + SinusMeds are given by her sales warehouse driver Lives in a recovery home Abdominal Pain Pain scale: 4/10 . Additional information: left lower quadrant abdominal pain. H/O colon ca in her maternal grandfather, uncle and multiple polyps in maternal aunt. She had [address] Lay in [place], 10 years ago. C/O RT knee pain X Ray from 08/27 020 did not show any displacement of hardware She has had extensive surgery on the right knee She has an abnormal gait that causes her to have an imbalance in her back/spine and shoulders. She does feel that she is aligned. She thinks she might be overcompensating on using one leg rather than the other C/O possible cyst in rectum area NOticed a cyst about 1 month ago - she thought this was a hemorrhoid but it has not been burning/bleeding This is located at her rectum She also describes a lot of pain after a bowel movement in her left lower quadrant anxiety This is a follow up visit. There is improvement of initial symptoms. The patient denies any presenting symptoms. The self denies any aggravating factors. Interventions the patient has tried have not provided any relief. The patient denies any chronic pain, headache, irritability, nausea, sweating, trembling, urinary frequency, vomiting and weight gain. insomnia The patient pres ents with sleep problems. The symptoms are unchanged. These complaints are episodic. Relevant history: a BMI of 37.15. The patient has the following risk factors for insomnia: smoking. Denies aggravating factors. Denies relieving factors. The patient denies awakening with choking, awakening with shortness of breath, cataplexy, changes in appetite, decreased libido, depression, difficulty concentrating, difficulty initiating sleep, difficulty maintaining sleep, gasping during sleep, headache upon awakening, heartburn, increased fatigue, irritability, malocclusion, nasal congestion, non-restorative sleep, personality changes, poor or worsening memory, sleep walking, snoring (reported by patient), snoring (reported by others), weight gain, wheezing or witnessed apnea or irregular nighttime breathing.Additional information: States nicole stopped taking her trazodone as it made her too tired and groggy in the mornings. Medication Here today for F U.States that she is doing well.She continues in sober living house.Denies any substance use.Denies any cravings. Denies any mood swings.Denies any S/I or H/I.Denies any hallucinations.Denies any intrusive thoughts.Denies any concerns with sleep.Denies any other concerns at this time. Follow Up of LYNN Here today for FU.States that she is doing well.Denies any substance useDenies any cravings.She continues to stay at a Sober living house.She is still working. Denies any mood swings.Denies any S/I or H/I.Denies any hallucinations.Denies any intrusive thoughts.Denies any concerns with sleep.Denies any other concerns at this time. anxiety This is a follow up visit. There is improvement of initial symptoms. The patient denies any presenting symptoms. The self denies any aggravating factors. Interventions the patient has tried have not provided any relief. The patient denies any chronic pain, headache, irritability, nausea, sweating, trembling, urinary frequency, vomiting and weight gain. Follow Up of LYNN Here today for FU.States that she is doing well.Denies any mood swingsDenies any S/I or H/IDenies any hallucinationsDenies any intrusive thoughts.Denies any concerns with sleep.Denies any other concerns at this time. Follow Up of LYNN Here today for FU.States that she is doing well.She states that she continues to fall asleep during the day, she is wanting to decrease her buprenorphine dosage. She also states she was groggy in the AM when she was taking her Seroquel. She is at a sober living house. Denies any mood swings.Denies any S/I or H/I.Denies any hallucinations.Denies any intrusive thoughts.Denies any concerns with sleep.Denies any other concerns at this time. Insomnia The patient pres ents with sleep problems. The symptoms are unchanged. These complaints are episodic. Relevant history: a BMI of 37.32. The patient has the following risk factors for insomnia: smoking. Denies aggravating factors. Denies relieving factors. The patient denies awakening with choking, awakening with shortness of breath, cataplexy, changes in appetite, decreased libido, depression, difficulty concentrating, difficulty initiating sleep, difficulty maintaining sleep, gasping during sleep, headache upon awakening, heartburn, increased fatigue, irritability, malocclusion, nasal congestion, non-restorative sleep, personality changes, poor or worsening memory, sleep walking, snoring (reported by patient), snoring (reported by others), weight gain, wheezing or witnessed apnea or irregular nighttime breathing.Additional information: Seroquel is making her groggy. Follow Up of LYNN Patient reports to clinic for f/u LYNN.Patient reports ran out of medication yesterday and reports feels like crap .She states she has been working and she continues to live at a sober living house.She states she is taking the phenergan and clonidine that was called in. States she is struggling with depression and anxietyDenies any S/I or H/IDenies any auditory or visual hallucinationsDenies any other concerns at this time. Follow Up of LYNN Today's visit v ia telephone related COVID concernsMisty moved to a sober living housing apx 2 weeks. She is doing meetings daily.Prior to starting at sober living she admits she was struggling and she was using her Subutex 3x a day and she will run out at the end of time. She states with her work schedule and then taking substance classes in the evenings she was craving mid day. She admits that the 3rd Subutex tablet in the day makes her very tired. Denies any substance use. States that she is otherwise doing well.Denies any mood swingsDenies any S/I or H/IDenies any hallucinationsDenies any intrusive thoughts.Denies any concerns with sleep.Denies any other concerns at this time. Follow Up of LYNN Here today for FU.States that she is doing ok. She is having increased cravings. She has been on 4mg TID with ongoing cravings. Denies any substance use. She has started some out patients services at [facility]. Denies any mood swingsDenies any S/I or H/IDenies any hallucinationsDenies any intrusive thoughts.Denies any concerns with sleep.Denies any other concerns at this time. Constipation It occurs daily. The problem is with no change. Pertinent negatives include abdominal pain, anorexia, back pain, black tarry stools, bleeding with bowel movement, bloating, change in appetite, change in stool caliber, change in stool pattern, flatulence, nausea, pain with passing stool, sedentary activity, vomiting, weight gain and weight loss. URI The patient pres ents with chills, cough, fatigue, generalized weakness, headache and nausea. The patient does not present with vomiting. The illness is associated with change in appetite and hoarseness. Additional information: [facility] care this past Wednesday and tested positive B influenza. Follow Up of COPD Diagnosed with COPD Exacerbation 08/11/19 and was given antibiotics, inhalers She was diagnosed with Influenza B last Wednesday at [facility]. She completed 5 days of Tamiflu. Since then, she has had a productive cough of green sputum, short of breath with exertion. Intermittent fever ~99-100F.Per patient, she has continued working despite Influenza diagnosis and was not given time off of work.She has been using Advair as prescribedUses Albuterol at least twice a day - helps sometimesDenies leg swellingShe is not sure that she has COPD - she has had 2 episodes of Bronchitis in her lifetime. She does not normally use inhalers unless she is ill. She has never had PFTs. History of childhood asthma that was not severe. Follow Up of LYNN Here today for FU.States that she is doing well.She gets up at 3am and then between work and her days she get her medications throughout the day until 9pm. She admits that she is take an extra 1/2 tab apx 9 am daily (0300, 0900 and 1400). Denies any substance useDenies any cravings. Denies any mood swingsDenies any S/I or H/IDenies any hallucinationsDenies any intrusive thoughts.Denies any concerns with sleep.Denies any other concerns at this time. Cough Onset: 2 days ag o. The patient describes the cough as productive (of green sputum). Context: COPD. Associated symptoms include chills, cough, dyspnea, fatigue, fever, nasal congestion, rhinorrhea, sinus pressure, sore throat and wheezing. Pertinent negatives include hemoptysis. The patient has a history of allergies and asthma. Additional information: COPD dx a couple years ago +smoker, prior to this had sinus pressure and congestion/runny nose for last couple weeks just worse cough/sob the last couple days. Previously on advair and albuterol - run out now. 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 reports cravings. No drug use since previous visit. last use apr 2019 States that she is doing well.reports mood swings. irritability, reports anxiety. Denies any S/I or H/IDenies any hallucinationsDenies any intrusive thoughts. Denies any concerns with sleep. reports trouble falling asleep. reports trouble stopping thoughts of cravings. gained 10 lbs this week. Denies any other concerns at this time. anxiety The patient pres ents with anxious/fearful thoughts, difficulty concentrating, difficulty falling asleep and excessive worry but denies compulsive thoughts, decreased need for sleep, depressed mood, difficulty staying asleep, easily startled, fatigue, feelings of guilt, feelings of invulnerability or increased energy. The self denies any aggravating factors. The patient denies any associated symptoms. The patient denies any pertinent negatives. Initial LYNN Consult Walked over to clinic today from [facility]: Dr Matacently moved her from [facility]/ outside of [facility] . Current concerns with mood include: Was recently inpatient in [place] at [facility],, was started on Suboxone she was DCd Jun 30. She ran out of her medications. She thought for a moment about coming off all Suboxone and transfer to a [facility] sober living and she is struggling with cravings.She has had various surgeries in the past for cervical cancer and this seems to have started her dependence on various substances. In the past she has struggled with depression, anxiety and mood swings.She has in the past struggled with adore and not needing much sleep, impulsive decisions and hypersexual in the past. Spend money excessively. Lacks insight or judgement. Would have auditory and visual hallucinations when she was using, denies any hallucinations when she is not on various substances. naloxone made her swell and feel like she had the flu so she was changed to Subutex. She will be starting a new job at [employer] Wednesday and she is starting a program through [facility]. PSYCHIATRIC HISTORY+ Psych inpatient/outpatient Hx: Denies. Bipolar I, PTSD, KIEL and insomnia. Was previously being seen at [facility] for psychiatry services. + Past medications: currently on seroquel, effexor, doxepin and gabapentin and these are helping. Dr Keith filled these medications this past week. + TBI Hx: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
--- OUTSIDE RECORDS SUMMARY | 2024-12-12 10:30 | XMS_ITS ---
Author Organization [facility] Address [address] [place] [address] Care Team Providers Care Management Internship Name Role Phone Svetlana Palomo Primary Care Provider [phone] REASON FOR VISIT 2 week MAT check in Social History Sex Assigned At : Social History Observation Description Sex Assigned At Female Encounters Encounter Location Date Provider Diagnosis [facility] [address] [place] [address] 12/12/2024 Svetlana Palomo Plan Of Treatment No Information Progress Notes * Yaquelin HOLLAND DDOB: [birth year] (39 yo F)Acc No.[id number]:12/12/2024 Patient: Yaquelin Jackson Provider: Silver Palomo MD :1985 A ge:39 Y S ex:Female Date:12/12/2024 Address:[address] [facility] Subjective: * Chief Complaints: * 2 week MAT check in Billing Information: * Procedure Codes: * Electronic signature of Kristi Palomo MD on 02/02/2025 at 10:21 AM CDT Sign off status: Pending * Provider: Silver Palomo MD Date: 12/12/2024 Generated for Printi ng/Faxing/eTransmitting on: 02/02/2025 10:21 AM CDT
--- OUTSIDE RECORDS SUMMARY | 2024-12-14 04:40 | XMS_ITS ---
Author Organization [facility] Address [address] [place] [address] Care Team Providers Care Bench Loom Weaver Name Role Phone Svetlana Palomo Primary Care Provider [phone] Yasmine Richards [phone] REASON FOR VISIT Mental Health Concerns Social History Sex Assigned At : Social History Observation Description Sex Assigned At Female Encounters Encounter Location Date Provider Diagnosis [facility] [address] [place] [address] 12/14/2024 Yasmine Richards Plan Of Treatment No Information Progress Notes * Yaquelin HOLLAND DDOB: [birth year] (39 yo F)Acc No.[id number]:12/14/2024 Progress Notes Patient: Yaquelin Jackson Appointment Provider: FLAKO Solano :1985 A ge:39 Y S ex:Female Date:12/14/2024 [address] Pcp:Svetlana Palomo Subjective: * Chief Complaints: * M ental Health Concerns Billing Information: * Procedure Codes: * Electronic signature of FLAKO Madrigal i on 02/02/2025 at 10:21 AM CDT Sign off status: Pending * Appointment Provider: FLAKO Solano Date: 12/14/2024 Generated for Printi ng/Faxing/eTransmitting on: 02/02/2025 10:21 AM CDT
--- OUTSIDE RECORDS SUMMARY | 2024-12-28 10:30 | XMS_ITS ---
Author Organization [facility] Address [address] [place] [address] Care Team Providers Care Four Roll Calender Operator Name Role Phone Svetlana Palomo Primary Care Provider REASON FOR VISIT 1 month MAT F/U Sublocade Social History Sex Assigned At : Social History Observation Description Sex Assigned At Female Encounters Encounter Location Date Provider Diagnosis [facility] [address] [place] [address] 12/28/2024 Svetlana Palomo Plan Of Treatment No Information Progress Notes * Yaquelin HOLLAND DDOB: [birth year] (39 yo F)Acc No.[id number]:12/28/2024 Patient: Yaquelin Jackson Provider: Silver Palomo MD :1985 A ge:39 Y S ex:Female Date:12/28/2024 Address:[address] [facility] Subjective: * Chief Complaints: * 1 month MAT F/U Sublocade Billing Information: * Procedure Codes: * Electronic signature of Kirsti Palomo MD on 02/02/2025 at 10:21 AM CDT Sign off status: Pending * Provider: Silver Palomo MD Date: 12/28/2024 Generated for Printi ng/Faxing/eTransmitting on: 02/02/2025 10:21 AM CDT
[2025-02-02 10:15] VITALS: BP 123/71; PULSE 77; RESP 16; TEMP 37; O2SAT 97; BMI 24.1
--- OUTSIDE RECORDS SUMMARY | 2025-02-02 10:21 | XMS_ITS | Patient Health Record ---
Author Organization [facility] Address [address] [place] [address] Care Team Providers Care Diamond Cleaner Name Role Phone Svetlana Paolmo Primary Care Provider Christen Carlson Unavailable [phone] Yasmine Richards Unavailable [phone] Larry Mason Unavailable [phone] Allergies Allergen (clinical drug ingredient) Drug/Non Drug Allergy documented on EMR Reaction Allergy Type Onset Date Status celecoxib Celebrex Unknown Drug Allergy Active Results Component Value Reference Range Flag Notes [employer] Results Reviewed date:12/06/2024 08:29:02 AM Interpretation: Performing Lab:[id number] [employer]itness Interactive Experience, [id number] [address] [facility] [address] Negar Breen MD Notes/Report: Methamphetamine D/L-isomer resolution (percentage): An isomer result of greater than or equal to 20% d-methamphetamine would indicate use of benzphetamine (Didr ex), Desoxyn, or illicit methamphetamine. An isomer result of less than 20% d-me thamphetamine indicates use of OTC products containing levmetamfetamine (l-isome r-methamphetamine) or selegiline (Emsam, Zelapar). Some generic OTC decongestant inhalers contain levmetamfetamine. - Acetyl fentanyl: Fentanyl Negative. Acetyl norfentanyl: Fentanyl Negative. Acryl fentanyl: Fentanyl Negative. Carfentanil: Fentanyl Negative. Para-fluorofentanyl: Fentanyl Negative. Codeine Quantification negative 50 ng/mL N Morphine Quantification negative 50 ng/mL N Hydrocodone Quantification negative 50 ng/mL N Norhydrocodone Quantification negative 50 ng/mL N Hydromorphone Quantification negative 50 ng/mL N Oxycodone Quantification negative 50 ng/mL N Noroxycodone Quantification negative 50 ng/mL N Oxymorphone Quantification negative 50 ng/mL N Buprenorphine Quantification positive-73.182 5 ng/mL N Norbuprenorphine Quantification positive-143.663 20 ng/mL N Fentanyl Quantification negative 1 ng/mL N Norfentanyl Quantification negative 8 ng/mL N Methadone Quantification negative 100 ng/mL N EDDP (Methadone metabolite) Quantification negative 100 ng/mL N Tramadol Quantification negative 100 ng/mL N K-vohgucern-hrlaavzq Quantification negative 100 ng/mL N X-Wuoojvbov-Nnesxilj Quantification negative 100 ng/mL N Tapentadol Quantification negative 50 ng/mL N Meperidine Quantification negative 50 ng/mL N Normeperidine Quantification negative 50 ng/mL N Alpha-Hydroxyalprazolam Quantification negative 20 ng/mL N 9-Fqkze-Vfkrjngkpc Quantification negative 20 ng/mL N Lorazepam Quantification negative 40 ng/mL N Nordiazepam Quantification negative 40 ng/mL N Temazepam Quantification negative 50 ng/mL N Oxazepam Quantification negative 40 ng/mL N Amphetamine Quantification positive-332.019 -I 100 ng/mL A Methylphenidate Quantification negative 50 ng/mL N Ritalinic Acid Quantification negative 50 ng/mL N Gabapentin Quantification negative-I 1000 ng/mL A Ketamine Quantification negative 50 ng/mL N Norketamine Quantification negative 50 ng/mL N Naltrexone Quantification negative 10 ng/mL N Naltrexol Quantification negative 10 ng/mL N Naloxone Quantification positive-226.266 20 ng/mL N Pentobarbital Quantification negative 200 ng/mL N Phenobarbital Quantification negative 200 ng/mL N Secobarbital Quantification negative 200 ng/mL N Butalbital Quantification negative 200 ng/mL N Levorphanol / Dextrorphan Quantification negative 50 ng/mL N Phentermine Quantification negative 50 ng/mL N Methamphetamine Quantification positive-236.843 -I 100 ng/mL A Methamphetamine D/L-isomer resolution Quantification positive-100.000 -I % d-isomer % d-isomer A Cocaine metabolite Quantification negative 50 ng/mL N cTHC (Marijuana metabolite) Quantification positive-18.582- I 15 ng/mL A MDMA Quantification negative 100 ng/mL N 6-HU (Heroin metabolite) Quantification negative 10 ng/mL N Phencyclidine Quantification negative 10 ng/mL N Acetyl fentanyl Quantification Fen Neg 2 ng/mL N Acetyl norfentanyl Quantification Fen Neg 5 ng/mL N Acryl fentanyl Quantification Fen Neg 1 ng/mL N Carfentanil Quantification Fen Neg 2 ng/mL N Para-fluorofentanyl Quantification Fen Neg 1 ng/mL N 2-methyl AP-237 Quantification negative 10 ng/mL N Brorphine Quantification negative 15 ng/mL N Metonitazene Quantification negative 5 ng/mL N 8-aminoclonazolam Quantification negative 10 ng/mL N Etizolam Quantification negative 10 ng/mL N Alpha-hydroxyetizolam Quantification negative 10 ng/mL N Flualprazolam Quantification negative 10 ng/mL N Flubromazolam Quantification negative 10 ng/mL N BLD766 metabolite Quantification negative 10 ng/mL N PEP575 metabolite Quantification negative 10 ng/mL N RCS4 metabolite Quantification negative 10 ng/mL N XLR11/UR144 metabolite negative 10 ng/mL N 5F-ADB-M7 negative 10 ng/mL N DP-EKDTUIVC-F1 negative 10 ng/mL N VXXS-CQLDWPIY-Y0 negative 10 ng/mL N Eutylone Quantification negative 10 ng/mL N Methylone Quantification negative 3 ng/mL N Xylazine Quantification negative 10 ng/mL N 4-hydroxy Xylazine Quantification negative 10 ng/mL N Mitragynine (Kratom alkaloid) Quantification negative 1 ng/mL N 0-YY-Nvnerpwmtdx (Kratom alkaloid) Quantification negative 1 ng/mL N ETHANOL negative 20 mg/dL mg/dL N Ethyl Glucuronide Quantification negative 500 ng/mL N Ethyl Sulfate Quantification negative 500 ng/mL N CREATININE normal-34.4 >20 mg/dL mg/dL N OXIDANT normal-0 <200 ug/mL ug/mL N PH normal-7.3 4.5 - 9.5 N SPECIFIC GRAVITY normal-1.008 1.003 - 1.035 N X ray : Knee, right 3 VW Reviewed date:11/29/2024 06:03:23 PM Interpretation: Performing Lab: Notes/Report: CHLAMYDIA/N. GONORRHOEAE RNA , TMA, UROGENITAL Reviewed date:11/06/2024 08:00:35 AM Interpretation: Performing Lab:SUSAN, [employer] [facility][id number] Jelly Negrete, [id number] Bernadette Byrne MD Notes/Report: 0 CHLAMYDIA TRACHOMATIS RNA, TMA, UROGENITAL NOT DETECTED NOT DETECTED N NEISSERIA GONORRHOEAE RNA, TMA, UROGENITAL NOT DETECTED NOT DETECTED N COMMENT The analytical performance characteristics of this assay, when used to test SurePath(TM) specimens have been determined by [employer]. The modifications have not been cleared or approved by the FDA. This assay has been validated pursuant to the CLIA regulations and is used for clinical purposes. For additional information, please refer to https://education.Ciklum/faq/FAQ 154 (This link is being provided for information/ educational purposes only.) [employer] Results Reviewed date:11/06/2024 08:00:35 AM Interpretation: Performing Lab:[id number] [employer]itness Interactive Experience, [address] [facility] [address] Negar Breen MD Notes/Report: Acetyl fentanyl: Fentanyl Negative. Acetyl norfentanyl: Fentanyl Negative. Acry l fentanyl: Fentanyl Negative. Carfentanil: Fentanyl Negative. Para-fluorofentan yl: Fentanyl Negative. Codeine Quantification negative 50 ng/mL N Morphine Quantification negative 50 ng/mL N Hydrocodone Quantification negative 50 ng/mL N Norhydrocodone Quantification negative 50 ng/mL N Hydromorphone Quantification negative 50 ng/mL N Oxycodone Quantification negative 50 ng/mL N Noroxycodone Quantification negative 50 ng/mL N Oxymorphone Quantification negative 50 ng/mL N Buprenorphine Quantification positive-71.889 5 ng/mL N Norbuprenorphine Quantification positive-550.763 20 ng/mL N Fentanyl Quantification negative 1 ng/mL N Norfentanyl Quantification negative 8 ng/mL N Methadone Quantification negative 100 ng/mL N EDDP (Methadone metabolite) Quantification negative 100 ng/mL N Tramadol Quantification negative 100 ng/mL N Y-mkriypkct-rjptxjqq Quantification negative 100 ng/mL N D-Rhwwevxtk-Nepxihmd Quantification negative 100 ng/mL N Tapentadol Quantification negative 50 ng/mL N Meperidine Quantification negative 50 ng/mL N Normeperidine Quantification negative 50 ng/mL N Alpha-Hydroxyalprazolam Quantification negative 20 ng/mL N 1-Vhfki-Eblxqgyuip Quantification negative 20 ng/mL N Lorazepam Quantification negative 40 ng/mL N Nordiazepam Quantification negative 40 ng/mL N Temazepam Quantification negative 50 ng/mL N Oxazepam Quantification negative 40 ng/mL N Amphetamine Quantification negative 100 ng/mL N Methylphenidate Quantification negative 50 ng/mL N Ritalinic Acid Quantification negative 50 ng/mL N Gabapentin Quantification negative-I 1000 ng/mL A Ketamine Quantification negative 50 ng/mL N Norketamine Quantification negative 50 ng/mL N Naltrexone Quantification negative 10 ng/mL N Naltrexol Quantification negative 10 ng/mL N Naloxone Quantification positive-174.729 20 ng/mL N Pentobarbital Quantification negative 200 ng/mL N Phenobarbital Quantification negative 200 ng/mL N Secobarbital Quantification negative 200 ng/mL N Butalbital Quantification negative 200 ng/mL N Levorphanol / Dextrorphan Quantification negative 50 ng/mL N Phentermine Quantification negative 50 ng/mL N Methamphetamine Quantification negative 100 ng/mL N Cocaine metabolite Quantification negative 50 ng/mL N cTHC (Marijuana metabolite) Quantification negative 15 ng/mL N MDMA Quantification negative 100 ng/mL N 6-HU (Heroin metabolite) Quantification negative 10 ng/mL N Phencyclidine Quantification negative 10 ng/mL N Acetyl fentanyl Quantification Fen Neg 2 ng/mL N Acetyl norfentanyl Quantification Fen Neg 5 ng/mL N Acryl fentanyl Quantification Fen Neg 1 ng/mL N Carfentanil Quantification Fen Neg 2 ng/mL N Para-fluorofentanyl Quantification Fen Neg 1 ng/mL N 2-methyl AP-237 Quantification negative 10 ng/mL N Brorphine Quantification negative 15 ng/mL N Metonitazene Quantification negative 5 ng/mL N 8-aminoclonazolam Quantification negative 10 ng/mL N Etizolam Quantification negative 10 ng/mL N Alpha-hydroxyetizolam Quantification negative 10 ng/mL N Flualprazolam Quantification negative 10 ng/mL N Flubromazolam Quantification negative 10 ng/mL N UGT017 metabolite Quantification negative 10 ng/mL N NPG846 metabolite Quantification negative 10 ng/mL N RCS4 metabolite Quantification negative 10 ng/mL N XLR11/UR144 metabolite negative 10 ng/mL N 5F-ADB-M7 negative 10 ng/mL N RQ-CQQSQXWP-R2 negative 10 ng/mL N STMJ-XIHHQSDF-Q3 negative 10 ng/mL N Eutylone Quantification negative 10 ng/mL N Methylone Quantification negative 3 ng/mL N Xylazine Quantification negative 10 ng/mL N 4-hydroxy Xylazine Quantification negative 10 ng/mL N Mitragynine (Kratom alkaloid) Quantification negative 1 ng/mL N 7-ME-Ktyuylchhgl (Kratom alkaloid) Quantification negative 1 ng/mL N ETHANOL negative 20 mg/dL mg/dL N Ethyl Glucuronide Quantification negative 500 ng/mL N Ethyl Sulfate Quantification negative 500 ng/mL N CREATININE normal-68.3 >20 mg/dL mg/dL N OXIDANT normal-0 <200 ug/mL ug/mL N PH normal-5.7 4.5 - 9.5 N SPECIFIC GRAVITY normal-1.013 1.003 - 1.035 N SURESWAB(R) TRICHOMONAS VAGI NALIS RNA, QL, TMA Reviewed date:11/06/2024 08:00:35 AM Interpretation: Performing Lab:KS, [employer]-[id number] Jelly Negrete, [id number] Bernadette Byrne MD Notes/Report: 0 TRICHOMONAS VAGINALIS RNA, QL TMA NOT DETECTED NOT DETECTED N For additional information, please refer to http://education.Zaarly/ faq/Trichomonastma (This link is being provided for informational/ educational purposes only.) [employer] Results Reviewed date:12/05/2024 10:18:08 AM Interpretation: Performing Lab:[id number] [employer]itness Interactive Experience, [address] [address] [facility] [address] Negar Breen MD Notes/Report: Methamphetamine D/L-isomer resolution (percentage): An isomer result of greater than or equal to 20% d-methamphetamine would indicate use of benzphetamine (Didr ex), Desoxyn, or illicit methamphetamine. An isomer result of less than 20% d-me thamphetamine indicates use of OTC products containing levmetamfetamine (l-isome r-methamphetamine) or selegiline (Emsam, Zelapar). Some generic OTC decongestant inhalers contain levmetamfetamine. - Ethyl Glucuronide: Unable to determine Tray tyl fentanyl: Fentanyl Negative. Acetyl norfentanyl: Fentanyl Negative. Acryl fe ntanyl: Fentanyl Negative. Carfentanil: Fentanyl Negative. Para-fluorofentanyl: Fentanyl Negative. Codeine Quantification negative 50 ng/mL N Morphine Quantification negative 50 ng/mL N Hydrocodone Quantification negative 50 ng/mL N Norhydrocodone Quantification negative 50 ng/mL N Hydromorphone Quantification negative 50 ng/mL N Oxycodone Quantification negative 50 ng/mL N Noroxycodone Quantification negative 50 ng/mL N Oxymorphone Quantification negative 50 ng/mL N Buprenorphine Quantification positive-313.664 5 ng/mL N Norbuprenorphine Quantification positive-233.566 20 ng/mL N Fentanyl Quantification negative 1 ng/mL N Norfentanyl Quantification negative 8 ng/mL N Methadone Quantification negative 100 ng/mL N EDDP (Methadone metabolite) Quantification negative 100 ng/mL N Tramadol Quantification negative 100 ng/mL N X-wvsmrolla-ygcufqdc Quantification negative 100 ng/mL N E-Ekycbruiy-Szoaqabe Quantification negative 100 ng/mL N Tapentadol Quantification negative 50 ng/mL N Meperidine Quantification negative 50 ng/mL N Normeperidine Quantification negative 50 ng/mL N Alpha-Hydroxyalprazolam Quantification negative 20 ng/mL N 0-Yfoxx-Qzqtkjyziy Quantification negative 20 ng/mL N Lorazepam Quantification negative 40 ng/mL N Nordiazepam Quantification negative 40 ng/mL N Temazepam Quantification negative 50 ng/mL N Oxazepam Quantification negative 40 ng/mL N Amphetamine Quantification positive-> 97424-N 100 ng/mL A Methylphenidate Quantification negative 50 ng/mL N Ritalinic Acid Quantification negative 50 ng/mL N Gabapentin Quantification negative-I 1000 ng/mL A Ketamine Quantification negative 50 ng/mL N Norketamine Quantification negative 50 ng/mL N Naltrexone Quantification negative 10 ng/mL N Naltrexol Quantification negative 10 ng/mL N Naloxone Quantification negative 20 ng/mL N Pentobarbital Quantification negative 200 ng/mL N Phenobarbital Quantification negative 200 ng/mL N Secobarbital Quantification negative 200 ng/mL N Butalbital Quantification negative 200 ng/mL N Levorphanol / Dextrorphan Quantification positive-1619.79 8-I 50 ng/mL A Phentermine Quantification negative 50 ng/mL N Methamphetamine Quantification positive-60605.6 49-I 100 ng/mL A Methamphetamine D/L-isomer resolution Quantification positive-100.000 -I % d-isomer % d-isomer A Cocaine metabolite Quantification negative 50 ng/mL N cTHC (Marijuana metabolite) Quantification positive-247.702 -I 15 ng/mL A MDMA Quantification negative 100 ng/mL N 6-HU (Heroin metabolite) Quantification negative 10 ng/mL N Phencyclidine Quantification negative 10 ng/mL N Acetyl fentanyl Quantification Fen Neg 2 ng/mL N Acetyl norfentanyl Quantification Fen Neg 5 ng/mL N Acryl fentanyl Quantification Fen Neg 1 ng/mL N Carfentanil Quantification Fen Neg 2 ng/mL N Para-fluorofentanyl Quantification Fen Neg 1 ng/mL N 2-methyl AP-237 Quantification negative 10 ng/mL N Brorphine Quantification negative 15 ng/mL N Metonitazene Quantification negative 5 ng/mL N 8-aminoclonazolam Quantification negative 10 ng/mL N Etizolam Quantification negative 10 ng/mL N Alpha-hydroxyetizolam Quantification negative 10 ng/mL N Flualprazolam Quantification negative 10 ng/mL N Flubromazolam Quantification negative 10 ng/mL N DLP140 metabolite Quantification negative 10 ng/mL N LUG068 metabolite Quantification negative 10 ng/mL N RCS4 metabolite Quantification negative 10 ng/mL N XLR11/UR144 metabolite negative 10 ng/mL N 5F-ADB-M7 negative 10 ng/mL N FQ-CZYWIRXZ-E1 negative 10 ng/mL N SQZR-MPFRXEAW-E2 negative 10 ng/mL N Eutylone Quantification negative 10 ng/mL N Methylone Quantification negative 3 ng/mL N Xylazine Quantification negative 10 ng/mL N 4-hydroxy Xylazine Quantification negative 10 ng/mL N Mitragynine (Kratom alkaloid) Quantification negative 1 ng/mL N 1-QY-Idcxhcqxjvj (Kratom alkaloid) Quantification negative 1 ng/mL N ETHANOL negative 20 mg/dL mg/dL N Ethyl Glucuronide Quantification SEE COMMENTS-I 500 ng/mL A Ethyl Sulfate Quantification negative 500 ng/mL N CREATININE normal-237.5 >20 mg/dL mg/dL N OXIDANT normal-0 <200 ug/mL ug/mL N PH normal-5.8 4.5 - 9.5 N SPECIFIC GRAVITY normal-1.029 1.003 - 1.035 N Reason For Referral Reason 39 y/o female with m oderate arthritis to right knee. Please evaluate and treat. Thank you. Diagnosis 1 Arthritis of right k nee (M17.11) Referral Organization [address] [place], [place] [address] Referring Provider First Name Svetlana Referring Provider Last Name Dewey Referring Provider Speciality [facility] Referred Organization [facility] Referred Address [address],[place], [place],[address],[place] Referred Provider Specialty Orthopedic S urgery General Notes NeshaMeganNicole 11/30/2024 08:32:53 AM >Referral completed and faxed to [facility] at [phone]. P#[phone], Damari Rousseau 12/06/2024 01:17:27 PM > scheduled 12/21, Damari Rousseau 01/31/2025 09:47:03 AM > pt r/s for 01/30 but does not appear pt came for this appointment Referral Priority Routine Referral Appointment Date 12/21/2024 Medications Medication SIG (Take, Route, Frequency, Duration) Notes Start Date End Date Status Sublocade 300 MG/1.5ML Solution Prefilled Syringe 1.5 mL Subcutaneous; Duration: 28 days 12/19/2024 Active Buprenorphine HCl-Naloxone HCl 8-2 MG Tablet Sublingual 1 tablet under the tongue and allow to dissolve Sublingual 3 times a day; Duration: 2 days please d/c other suboxone rx from today 11/28/2024 Active Ibuprofen 800 mg Tablet 1 tablet with food or milk as needed Orally Three times a day; Duration: 30 days Not-Taking/P RN Mirtazapine 7.5 MG Tablet 1 tab Orally before bed Not-Taking/P RN Gabapentin 600 MG Tablet 1 tablet Orally twice daily; Duration: 30 days 08/03/2022 Active Ondansetron HCl 4 MG Tablet 1 tablet Orally Once a day; Duration: 30 day(s) 01/04/2023 Not-Taking/P RN Naproxen 500 MG Tablet 1 tablet with food or milk Orally every 12 hrs as needed; Duration: 30 days 11/28/2024 Active Buprenorphine HCl-Naloxone HCl 8-2 MG Tablet Sublingual 1 tablet under the tongue and allow to dissolve Sublingual Twice a day; Duration: 5 days [id number] 11/05/2022 Not-Taking/P RN Cipro 500 MG Tablet 1 tablet Orally every 12 hrs; Duration: 7 days 01/04/2023 Not-Taking/P RN Abilify 5 MG Tablet 1 tablet Orally Once a day; Duration: 30 days Active Docusate Sodium 100 MG Capsule 1 capsule as needed Orally twice a day; Duration: 30 day(s) 06/11/2022 Not-Taking/P RN Flonase Allergy Relief 50 MCG/ACT Suspension 1 spray in each nostril Nasally bid; Duration: 30 day(s) Not-Taking/P RN Sublocade 300 MG/1.5ML Solution Prefilled Syringe 1.5 mL Subcutaneous Q MONTH 11/09/2022 Not-Taking/P RN Sublocade 100 MG/0.5ML Solution Prefilled Syringe 0.5 mL Subcutaneous Monthly; Duration: 28 days 12/08/2022 Not-Taking/P RN Topiramate 50 mg Tablet TAKE ONE TABLET BY MOUTH IN THE MORNING AND TWO TABLETS AT BEDTIME; Duration: 30 Not-Taking/P RN Albuterol Sulfate HFA 108 (90 Base) MCG/ACT Aerosol Solution 1 puff as needed Inhalation every 4 hrs Not-Taking/P RN Tylenol 325 MG Tablet 1 tablet as needed Orally every 4 hrs Not-Taking/P RN Buprenorphine HCl-Naloxone HCl 8-2 MG Tablet Sublingual 1/2 pill as needed for pain Sublingual Once a day; Duration: 28 days 11/30/2024 Active Cetirizine HCl 10 MG Tablet 1 tablet Orally Once a day; Duration: 30 day(s) Active Propranolol HCl 10 MG Tablet 1 tablet Orally Twice a day; Duration: 30 days Active Immunizations Vaccine Route Administration Date Status Comme nts Flulaval Quad IM Intramuscular 05/11/2022 Administered Moderna Covid 1st Dose Unknown 01/02/2021 Administered Moderna Covid 1st Dose Unknown 02/17/2021 Administered Social History Tobacco Use: Social History Observation Description Date Details (start date - stop date) Current Smoker NA - NA Sex Assigned At : Social History Observation Description Sex Assigned At Female Social History Social Determinants Social Info Question Answer Notes PRAPARE Date Completed/Updated: 11/01/2024 What is your current housing situation? I do not have housing (staying with others, in a hotel, in a jail, living outside on the street, on a beach, or in a park) Are you worried about losing your housing? Yes What is the highest level of school that you have finished? More than high school What is your current work situation? Unemployed and seeking work In the past year, have you o r any family members you live with been unable to get any of the following when it was really needed? Check all that apply Phone Has lack of transportation k ept you from medical appointments, meetings, work or from getting things needed for daily living? Yes, it has kept me from medical appointments or from getting my medications How often do you see or talk to people that you care about and feel close to? (For example: talking to friends on the phone, visiting friends or family, going to anabaptism or club meetings) More than 5 times a week How stressed are you? Stress is when someone feels tense, nervous, anxious, or cant sleep at night because their mind is troubled Somewhat In the past year have you sp ent more than 2 nights in a row in a alf, custodial, long term center, or juvenile correctional facility? Yes Are you a refugee? No What country are you from? [place] Do you feel physically and e motionally safe where you currently live? I choose not to answer this question In the past year, have you b een afraid of your partner or ex-partner? I choose not to answer this question PRAPARE Score: 11 Drugs/Alcohol: Social Info Question Answer Notes Drugs Have you used drugs other than those for medical reasons in the past 12 months? Yes Prescription opiates? Yes Methamphetamine? Yes MAT MAT Agreement Signed Yes MAT Agreement Date 02/02/2022 DO NOT USE SBIRT 2014 Patient refused/declined SBIRT s creening at this time? No In the past 3 months, how often do you have a drink containing alcohol? Monthly or less In the past 3 months, how many drinks containing alcohol do you have on a typical day when you are drinking? 1 or 2 In the past 3 months, how often do you have 4 or more drinks on one occasion? Females (and Males 65 and older). In the past 3 months, how often do you have 5 or more drinks on one occasion? Males (younger than 65) Never In the past 12 months, did you smoke pot, use another street drug, or use a prescription painkiller, stimulant, or sedative for a non-medical reason? Yes The cumulative score is 1 A referral is needed Caffeine Intake: more than 4 cups per day Comprehensive Health Assessm ent Social Info Question Answer Notes Comprehensive Health Assessment Assistance with drug cost? No Assistance with food cost? No Any communication needs? No Any High risk behaviors ? Yes Any Mental health issues? Yes Any substance abuse ? Yes Problems understanding meds or dx ? No Has been referred for Comp. Care Plan? No Drug/Alcohol: Social Info Question Answer Notes SBIRT (2018 Edition) Patient refused/dec lined SBIRT screening at this time? Yes SCORE 0 Interpretation Negative Total Count 0 Interpretation Negative AUDIT-C (Standard) Did you have a drink containing alc ohol in the past year? No Points 0 Interpretation Negative Tobacco Use: Social Info Question Answer Notes Tobacco Control (Standard) Tobacco use: Current smoker How often do you smoke cigarettes? Every day How many cigarettes a day do you smoke? 6-10 Are you an ENDS user: Are you an other t obacco user? Yes vapor Additional Details Category Social Info Options Details Migrated Social History Social History: (Alcohol):No (Caffine):Yes (Illicit Drugs):No in the past heroin, amph, iv durg abuse, drug rehab (Sexually Active):No (Smoking): status: Current smoker Section Notes: unemployed unemployed unemployed unemployed unemployed unemployed Problems Problem Type SNOMED Code ICD Code Onset Dates Problem Status W/U Status Risk Notes Problem Depression (110938956) Depression (F32.9) Active confirmed Problem Asthma (827252331) Asthma (J45.909) Active confirmed Problem Anxiety (77641345) Anxiety (F41.9) Active confirmed Problem Smoking (62119633) Smoking (F17.200) Active confirmed Problem Opioid dependence (96753036) Opioid dependence, uncomplicated (F11.20) Active confirmed Problem Chronic pain (23500178) Other chronic pain (G89.29) Active confirmed Problem History of hepatitis C (08822054240687) Hx of hepatitis C (Z86.19) Active confirmed Problem Constipation (07528399) Constipation, unspecified constipation type (K59.00) Active confirmed Problem Opioid dependence (43755964) Uncomplicated opioid dependence (F11.20) Active confirmed Problem Smoker (66501269) Smoker (F17.200) Active confirmed Problem Malignant tumor of cervix (866867293) Malignant neoplasm of cervix, unspecified site (C53.9) Active confirmed Problem Arthritis of right knee (931671328120055 2) Arthritis of right knee (M17.11) Active confirmed Problem Substance use disorder (7111866903) Substance use disorder (F19.90) Active confirmed Vital Signs Heart Rate 76 /min 11/28/2024 Temperature 98.7 degrees Fahrenheit 11/28/2024 Respiratory Rate 18 /min 11/01/2024 Height-cm 165.1 cm 11/28/2024 Oximetry 97 % 11/28/2024 Blood pressure diastolic 72 mm Hg 11/28/2024 Weight-kg 64 kg 11/28/2024 Height 65 in 11/28/2024 Blood pressure systolic 118 mm Hg 11/28/2024 Weight 141.1 lbs 11/28/2024 BMI 23.48 kg/m2 11/28/2024 Encounters Encounter Location Date Provider Diagnosis [address] [place] [address] [place] [phone] 11/01/2024 Larry Mason Uncomplicated opioid dependence F11.20 ; Drug use disorder F19.90 and Screen for sexually transmitted diseases Z11.[address] [place] [address] [address] [place] [phone] 11/01/2024 Larry Mason [address] [place] [address] [place] [phone] 11/28/2024 Svetlana Palomo Nutritional counseli ng Z71.3 ; Substance use disorder F19.90 ; Uncomplicated opioid dependence F11.20 ; Right knee pain M25.561 and Reactive depression F32.[address] [place] [address] [address] [place] [phone] 11/28/2024 Svetlana Palomo [address] [place] [address] [place] [phone] 11/28/2024 Svetlana Palomo Right knee pain M25.[address] [place] [address] [place] [phone] 11/30/2024 Svetlana Palomo Drug use disorder F19.[address] [place] [address] [place] [phone] 11/15/2024 Svetlana Palomo Reactive depression F32.9 and Constipation, unspecified constipation type K59.[address] [place] [address] [place] [phone] 11/22/2024 Larry Mason Uncomplicated opioid dependence F11.[address] [place] [address] [address] [place] [address] 11/29/[address] [place] [address] 11/30/2024 [facility] [address] [place] [address] 11/30/[address] [place] [address] 12/07/[address] [place] [address] 12/19/2024 Svetlana Palomo Uncomplicated opioid dependence F11.20 Assessments Encounter Date Diagnosis (ICD Code) Assessment Notes Treatment Notes Treatment Clinical Notes Section Notes 11/01/2024 Uncomplicated opioid dependence (ICD-10 - F11.20) Discussed plan of care with pt to include medication usage and possible adverse effects. Encouraged pt to f.u in 1 month . Stable at time of d/c no evidence of distress. Reiterated the contract obligations with pain medication. The PDMP for pt. was reviewed before prescribing medication along with previous urine drug screens. (5-10 mins) According to Lab patient refused the blood draw because they wouldnt stick her in the artery and she left. Lab was advised to cancel the blood work. 11/01/2024 Drug use disorder (ICD-10 - F19.90) 11/15/2024 Reactive depression (ICD-10 - F32.9) 11/22/2024 Uncomplicated opioid dependence (ICD-10 - F11.20) 11/28/2024 Nutritional counseling (ICD-10 - Z71.3) Eating Healthy Foods: Care Instructions material was printed 11/28/2024 Substance use disorder (ICD-10 - F19.90) 11/28/2024 Right knee pain (ICD-10 - M25.561) 11/30/2024 Drug use disorder (ICD-10 - F19.90) 12/19/2024 Uncomplicated opioid dependence (ICD-10 - F11.20) 11/28/2024 Uncomplicated opioid dependence (ICD-10 - F11.20) 11/01/2024 Screen for sexually transmitted diseases (ICD-10 - Z11.3) Will notify patient once lab results are obtained. 11/15/2024 Constipation, unspecified constipation type (ICD-10 - K59.00) 11/28/2024 Right knee pain (ICD-10 - M25.561) 11/28/2024 Reactive depression (ICD-10 - F32.9) 11/28/2024 Other due to issues with ins - we are going to cover her with suboxone tabs tid x 2 d till sublocade goes through - can do 1/2 tab daily prn breakthru pain of suboxone with that xr knee and add naproxen for knee pain restart abilify and propranolol she is meeting with product safety officer regularly and they are planning inpt rehab if not doing well with mat Plan Of Treatment No Information Insurance Providers Payer Name Payer Address Payer Phone Subscriber Number Group Number Insured Name Patient Relationship to Insured Coverage Start Date Coverage End Date Medicaid [address] [place] [address] [id number] Yaquelin Benjamin Self - patient is the insured Medications Administered Medication Instructions Date of Administration Dosage Notes Sublocade 01/04/2023 100 mg Sublocade 11/09/2022 300 mg Sublocade 12/07/2022 300 mg Sublocade 11/01/2024 300 mg Sublocade 11/30/2024 300 mg LRQ of Abdomen Medical (General) History Medical History History ICD Code Hx of hepatitis C Z86.19 Substance use disorder F19.90 Malignant neoplasm of cervix, unspecifie d site C53.9 Anxiety F41.9 Depression F32.9 Asthma J45.909 Surgical History Surgery Date(Month/Year) knee surgery hysterectomy 2010 carpal tunnel release knee surgery x 7 right 2000 colonoscopy abscess's from arms and leg TUBAL LIGATION hysterectomy Hospitalization History Reason Date(Month/Year) [facility] 09/2024 [facility] 10/2022 staph infection knee surgery x 7 right hysterectomy abscess 's from arms and legs 2018
--- NOTE | 2025-02-02 10:42 | XR_ITS ---
WS: [id number] XR chest 1V portable [id number] REASON FOR EXAM: dyspnea/cough FINDINGS: The heart and the mediastinum are within normal limits. Normal heart size. Calcified granulomatous disease bilaterally. No acute pulmonary parenchymal or pleural abnormality. No significant abnormality of the bony thorax. XR/XR chest 1V portable [id number] IMPRESSION: No acute chest abnormality.
--- NOTE | 2025-02-02 10:44 | ECG_ITS ---
[facility] 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 Measurements Intervals [place] Rate: 62 P: 40 ND: 158 QRS: 48 QRSD: 92 T: 47 QT: 430 QTc: 439 Interpretive Statements SINUS RHYTHM POSSIBLE RIGHT VENTRICULAR CONDUCTION DELAY [RSR (QR) IN V1/V2] WARNING: DATA QUALITY MAY AFFECT INTERPRETATION No previous ECG available for comparison Electronically Signed On 02-02-2025 13:44:51 CDT by Juany Evans M.D. [email or web address]
--- NOTE | 2025-02-02 10:45 | ED_ITS ---
HPI - SOB/Dyspnea 2 General: Chief Complaint: Fever Stated Complaint: fever, coughing up flem, chest heavy Time Seen by Provider: 02/02/25 10:33 History of Present Illness: HPI Narrative: 51-year-old female presents emergency ro om planing of chest heaviness she has had with a productive cough for a month. She denies any hemoptysis she has facial pain and pressure at times she was treated for a sinus infection around the time this began with a course of amoxicillin. Discomfort is more on the left than the right. She also received a course of metronidazole for what sounds like was a bacterial vaginosis infection. She has no other symptoms no abdominal pain no dysuria urgency or frequency. She has she has chronic a headache fever a little over 100 for a month. Associated symptoms: Deny abdominal pain, chest pain or fever(s) Related Data Previous Rx's ?Medication ?Instructions ?Recorded buprenorphine 8 mg-naloxone 2 mg 1 film sublingual THUY LY opioid 10/06/24 sublingual film (Suboxone) dependence #30 ea amoxicillin 875 mg-potassium 1 tab PO BID #20 tabs 02/19 clavulanate 125 mg tablet Allergies Allergy/AdvReac Type Severity Reaction Status Date / Time naproxen Allergy Intermediate ALGY-Swell Verified 01/16/25 08:08 Lip/Tongue/Throat celecoxib (From Celebrex) Allergy Unknown Verified 01/16/25 08:08 Review of Systems 2 Const: Denies: fever(s) or chills ENMT: Reports: nasal congestion and sinus pain; Denies: throat pain Card: Denies: chest pain Resp: Denies: dyspnea GI: Denies: abdominal pain : Denies: dysuria, urinary frequency or urinary urgency Musc: Denies: neck pain or back pain Skin/Breast: Denies: rash PFSH ED 2 PFSH: Medical History Asthma No pertinent past medical history neghx: dm, thyroid, dvt/pe PCP: None History of hypertension only during rehabilitation- 11/2024 Surgical History History of section (~2004) H/O tubal ligation (~2007) Hx of knee surgery x7-- arthroscopic-- reports cadaver ligaments and self hamstring History of bowel resection (~2011) Family History Grandfather Colon cancer Hypertension Heart disease Stroke Mother Diabetes Hypertension Ovarian cancer Grandmother Diabetes Hypertension Father Hyperlipidemia Hypertension Stroke Brother Hyperlipidemia Hypertension Denies family history of Prostate cancer Breast cancer Uterine cancer Thyroid disease Social History Smoking and tobacco/nicotine status: current every day tobacco/nicotine user (vape use) Physical Exam 2 Const: GENERAL APPEARANCE: cooperative ORIENTATION/CONSCIOUSNESS: Yes awake, Yes oriented to person, Yes oriented to place and Yes oriented to time HENMT: COMMON NORMALS: normocephalic, atraumatic and hearing grossly normal bilaterally HEAD & SCALP: normocephalic and atraumatic OTHER: Pain with percussion over the left maxillary sinus mild discomfort on the right Resp: COMMON NORMALS: normal respiratory effort, No retractions, No use of accessory muscles and clear to auscultation bilaterally AUSCULTATION: clear to auscultation bilaterally Cardio: COMMON NORMALS: regular rate, regular rhythm and No murmurs present (Cardio) RATE: regular rate RHYTHM: regular rhythm GI: COMMON NORMALS: Soft to palpation and No hepatosplenomegaly present A USCULTATION: Yes normoactive bowel sounds PALPATION: Yes Soft to palpation, No Tenderness to palpation present (GI), No Guarding due to palpation present (GI) and Yes No hepatosplenomegaly present Extremity: COMMON NORMALS: normal to inspection, capillary refill normal, no clubbing, cyanosis or edema, no calf tenderness and no pedal edema Neuro: SENSORIUM/ORIENTATION: Yes oriented to person, Yes oriented to place and Yes oriented to time Skin: COMMON NORMALS: no rashes or lesions noted GENERAL SKIN EXAM: no rashes or lesions noted Course 2 Vital Signs: Vital signs: Vital Signs Temperature 98.6 F 02/02/25 10:15 Pulse Rate 59 L 02/02/25 11:57 Respiratory Rate 14 02/02/25 11:57 Blood Pressure 101/55 02/02/25 11:57 Pulse Oximetry 100 02/02/25 11:57 Oxygen Delivery Me thod Room Air 02/02/25 10:15 MDM - SOB/Dyspnea Medical Decision Making Based on patient's presentation normal chest x-ray normal white He probably has a persistent sinusitis talking to her she was given amoxicillin probably undertreated just been having chronic sinusitis since then we will put her on a course of Augmentin 875 twice daily. Labs and imaging reviewed with her reviewed as found on the chart Medical Records I reviewed the patient's medical records. Lab Data I reviewed the patient's lab results. 02/02/25 11:06 02/02/25 11:06 Labs/Radiology: Radiology Impressions Chest X-Ray 02/02/25 10:42 IMPRESSION: No acute chest abnormality. Laboratory Results WBC 5.88 10^3/uL (3.29-11.43) 02/02/25 11:06 RBC 3.78 10^6/uL (3.85-5.65) L 02/02/25 11:06 Hgb 11.90 g/dL (11.27-16.99) 02/02/25 11:06 Hct 35.7 % (36-47) L 02/02/25 11:06 MCV 94.4 fl (85-98) 02/02/25 11:06 MCH 31.5 pg (27-33) 02/02/25 11:06 MCHC 33.3 g/dL (30-55) 02/02/25 11:06 RDW 12.7 % (12.1-15.1) 02/02/25 11:06 Plt Count 261 10^3/cmm (157-399) 02/02/25 11:06 MPV 8.9 fL (7.4-10.4) 02/02/25 11:06 Neut % (Auto) 45.8 % 02/02/25 11:06 Lymph % (Auto) 44.4 % 02/02/25 11:06 Emmons % (Auto) 6.3 % 02/02/25 11:06 Eos % (Auto) 2.6 % 02/02/25 11:06 Baso % (Auto) 0.7 % 02/02/25 11:06 Neut # (Auto) 2.70 10^3/uL (1.8-7.7) 02/02/25 11:06 Lymph # (Auto) 2.6 10^3/uL (0.8-4.8) 02/02/25 11:06 Emmons # (Auto) 0.4 10^3/uL (0.2-0.9) 02/02/25 11:06 Eos # (Auto) 0.2 10^3/uL (0.0-0.8) 02/02/25 11:06 Baso # (Auto) 0.0 10^3/uL (0.0-0.1) 02/02/25 11:06 Nucleated RBC % (auto) 0 % 02/02/25 11:06 Nucleated RBCs # 0.0 /100WBC 02/02/25 11:06 Sodium 141 mmol/L (136-145) 02/02/25 11:06 Potassium 4.1 mmol/L (3.5-5.1) 02/02/25 11:06 Chloride 108 mmol/L (98-107) H 02/02/25 11:06 Carbon Dioxide 23 mmol/L (22-29) 02/02/25 11:06 Anion Gap 14.1 (5-19) 02/02/25 11:06 BUN 11 mg/dL (6-20) 02/02/25 11:06 Creatinine 0.5 mg/dL (0.5-0.9) 02/02/25 11:06 GFR Calculation 138.1 mL/min (90-130) H 02/02/25 11:06 Glucose 106 mg/dL (65-115) 02/02/25 11:06 Calculated Osmolality 292 mOsm/kg (285-295) 02/02/25 11:06 Calcium 8.7 mg/dL (8.5-10.5) 02/02/25 11:06 Magnesium 1.8 mg/dL (1.7-2.3) 02/02/25 11:06 Total Bilirubin 0.2 mg/dL (0.15-1.2) 02/02/25 11:06 AST 24 U/L (0-32) 02/02/25 11:06 ALT 33 U/L (0-33) 02/02/25 11:06 Alkaline Phosphatase 44 U/L (35-105) 02/02/25 11:06 Total Protein 6.3 g/dL (6.6-8.7) L 02/02/25 11:06 Albumin 4.0 g/dL (3.5-5.2) 02/02/25 11:06 Globulin 2.3 g/dL (1.3-4.6) 02/02/25 11:06 Lipase 32 U/L (13-60) 02/02/25 11:06 Urine Color Yellow (Yellow) 02/02/25 11:16 Urine Appearance Clear (CLEAR) 02/02/25 11:16 Urine pH 6.0 (5-7) 02/02/25 11:16 Ur Specific [place] 1.018 (1.005-1.030) 02/02/25 11:16 Urine Protein Negative (Negative) 02/02/25 11:16 Urine Glucose (UA) Negative (Normal) 02/02/25 11:16 Urine Ketones Trace (Negative) 02/02/25 11:16 Urine Blood Negative (Negative) 02/02/25 11:16 Urine Nitrate Positive (Negative) A 02/02/25 11:16 Urine Bilirubin Negative (Negative) 02/02/25 11:16 Urine Urobilinogen 1.0 mg/dL (Negative) 02/02/25 11:16 Ur Leukocyte Esterase 1+ (Negative) A 02/02/25 11:16 Urine RBC 0-2 /hpf (0-2) 02/02/25 11:16 Urine WBC 6-10 /hpf (0-5) 02/02/25 11:16 Ur Squamous Epith Cells 6-10 /hpf (0-5) 02/02/25 11:16 Amorphous Sediment Not Reportable 02/02/25 11:16 Urine Bacteria 4+ /hpf (NONE) H 02/02/25 11:16 Hyaline Casts 0.40 /lpf 02/02/25 11:16 Influenza A (PCR) Negative (Negative) 02/02/25 11:38 Influenza Type B (PCR) Negative (Negative) 02/02/25 11:38 RSV (PCR) Negative (Negative) 02/02/25 11:38 SARS-CoV-2 (PCR) Negative (Negative) 02/02/25 11:38 All radiology interpretation(s) finalized by discharge Discharge Plan Discharge Patient Disposition: Home Clinical Impression: Sinusitis Condition: Stable Prescriptions: New amoxicillin-pot clavulanate 875-125 mg tablet 1 tab PO BID Qty: 20 0RF No Action buprenorphine-naloxone [Suboxone] 8-2 mg film 1 film sublingual DAILY Qty: 30 0RF Discharge Orders: Discharge ED (Routine); Ordered 02/02/25 Ordered By: Ravi Flannery Discharge Diet: Usual diet Discharge Activity: Resume usual activity Patient Instructions: Opioid Safety, Pain Management, Patient Portal & Alejandrina Instructions Activity Restrictions/Additional Instructions: Thank you for choosing [facility] for your healthcare needs today. It is very important that you follow up as instructed or that you return to the Emergency Department should you have concerns or if your condition changes or worsens in any way. You are seen in the emergency room with persistent cough and fever your chest x- ray looks normal your white count is normal. Based on the history you gave and your exam findings suspect you have a sinusitis. Will put you on a course of amoxicillin clavulanic acid 1 pill twice a day for 10 days. Follow-up with your doctor if it is not improving if symptoms worsen recheck. Print Language: Kinyarwanda Coding Level of Care Code ED Speedboat Driver for Anshu Taylor
[2025-02-02 11:14] LABS: Hematocrit 35.7 % (36-47); Hemoglobin 11.90 g/dL (11.27-16.99); Mean Corpuscular HGB Conc 33.3 g/dL (30-55); Mean Corpuscular Hemoglobin 31.5 pg (27-33); Mean Corpuscular Volume 94.4 fl (85-98); Nucleated Red Blood Cells % 0 %; Platelet Count 261 10^3/cmm (157-399); Red Blood Count 3.78 10^6/uL (3.85-5.65); White Blood Count 5.88 10^3/uL (3.29-11.43)
[2025-02-02 11:34] LABS: Alanine Aminotransferase 33 U/L (0-33); Albumin Level 4.0 g/dL (3.5-5.2); Alkaline Phosphatase 44 U/L (35-105); Anion Gap 14.1 (5-19); Aspartate Amino Transferase 24 U/L (0-32); Blood Urea Nitrogen 11 mg/dL (6-20); Calcium 8.7 mg/dL (8.5-10.5); Carbon Dioxide 23 mmol/L (22-29); Chloride 108 mmol/L (98-107); Creatinine Clr Calc Pharmacy 145.7244; Globulin 2.3 g/dL (1.3-4.6); Glucose 106 mg/dL (65-115); Lipase 32 U/L (13-60); Magnesium 1.8 mg/dL (1.7-2.3); Osmolality Calculated 292 mOsm/kg (285-295); Potassium 4.1 mmol/L (3.5-5.1); Sodium 141 mmol/L (136-145); Total Protein 6.3 g/dL (6.6-8.7)
[2025-02-02 11:45] LABS: Glucose Urine UA Negative (Normal); Nitrate Urine Positive (Negative); Specific Gravity, Urine 1.018 (1.005-1.030)
[2025-02-02 11:47] LABS: Add Urine Microscopic? YES
[2025-02-02 11:57] VITALS: BP 101/55; PULSE 59; RESP 14; O2SAT 100
[2025-02-02 12:37] LABS: Respiratory Syncytial Virus Ce NEGATIVE (Negative); SARS-CoV-2 PCR NEGATIVE (Negative)
== END 2025-02-02 11:57 | disposition home or self-care (01) ==
PROVIDERS: Emergency Provider Family Medicine
DX: J32.9 Chronic sinusitis, unspecified (principal)
CPT/HCPCS: 71045; 80053; 81001; 83690; 83735; 85025; 87040; 87077; 87086; 87186; 87637; 93005; 99285

== ENCOUNTER 2025-02-07 13:24 | Inpatient (IN) | payer MEDICAID, SELFPAY ==
--- NOTE | 2025-02-07 13:28 | W.ED.PSYCHS ---
HPI - Psych General: Stated Complaint: mhe Time Seen by Provider: 02/07/25 13:26 Related Data Previous Rx's ?Medication ?Instructions ?Recorded buprenorphine 8 mg-naloxone 2 mg 1 film sublingual DAILY opioid 10/06/24 sublingual film (Suboxone) dependence #30 ea amoxicillin 875 mg-potassium 1 tab PO BID #20 tabs 02/02/25 clavulanate 125 mg tablet Allergies Allergy/AdvReac Type Severity Reaction Status Date / Time naproxen Allergy Intermediate ALGY-Swell Verified 01/16/25 08:08 Lip/Tongue/Throat celecoxib (From Celebrex) Allergy Unknown Verified 01/16/25 08:08 [facility] ED PFSH: Medical History (Updated 02/02/25 @ 11:47 by Ravi Flannery DO) Asthma No pertinent past medical history neghx: dm, thyroid, dvt/pe PCP: None History of hypertension only during rehabilitation- 11/2024 Surgical History History of section (~2004) H/O tubal ligation (~2007) Hx of knee surgery x7-- arthroscopic-- reports cadaver ligaments and self hamstring History of bowel resection (~2011) Family History Grandfather Colon cancer Hypertension Heart disease Stroke Mother Diabetes Hypertension Ovarian cancer Grandmother Diabetes Hypertension Father Hyperlipidemia Hypertension Stroke Brother Hyperlipidemia Hypertension Denies family history of Prostate cancer Breast cancer Uterine cancer Thyroid disease Social History Smoking and tobacco/nicotine status: current every day tobacco/nicotine user (vape use) Discharge Plan Discharge Condition: Stable Prescriptions: No Action buprenorphine-naloxone [Suboxone] 8-2 mg film 1 film sublingual DAILY Qty: 30 0RF amoxicillin-pot clavulanate 875-125 mg tablet 1 tab PO BID Qty: 20 0RF Print Language: Canadian Coding Level of Care Code ED Designated Broker for Anshu Taylor
--- NOTE | 2025-02-07 13:32 | ED_ITS ---
HPI - Abdominal Pain 2 General: Chief Complaint: Psychiatric Symptoms Stated Complaint: mhe Time Seen by Provider: 02/07/25 13:26 History of Present Illness: Chief complaint is 96-hour hold and people are following her. The patient states that people are following her. She states that there are people in the backseat of her car. She states that she went to get a restraining order because people are following her and then she was brought here. Denies suicidal ideation. Related Data Home Medications ?Medication ?Instructions ?Recorded ?Confirmed buprenorphine 12 mg-naloxone 3 mg See Rx Instructions .Route .COMPLEX 02/07/25 02/07/25 sublingual film (Suboxone) cetirizine 10 mg tablet 10 mg PO DAILY 02/07/2501/26 gabapentin 600 mg tablet 600 mg PO TID PRN nerve pain 02/07/25 02/07/25 propranolol 10 mg tablet 10 mg PO BID 02/07/25 Previous Rx's ?Medication ?Instructions ?Recorded amoxicillin 875 mg-potassium 1 tab PO BID #20 tabs 02/19 clavulanate 125 mg tablet Allergies Allergy/AdvReac Type Severity Reaction Status Date / Time naproxen Allergy Intermediate ALGY-Swell Verified 01/16/25 08:08 Lip/Tongue/Throat celecoxib (From Celebrex) Allergy Unknown Verified 01/16/25 08:08 [facility] ED 2 [facility]: Medical History (Updated 02/07/25 @ 13:47 by Adonay Duvall MD) Asthma No pertinent past medical history neghx: dm, thyroid, dvt/pe PCP: None History of hypertension only during rehabilitation- 11/2024 Surgical History History of section (~2004) H/O tubal ligation (~2007) Hx of knee surgery x7-- arthroscopic-- reports cadaver ligaments and self hamstring History of bowel resection (~2011) Family History Grandfather Colon cancer Hypertension Heart disease Stroke Mother Diabetes Hypertension Ovarian cancer Grandmother Diabetes Hypertension Father Hyperlipidemia Hypertension Stroke Brother Hyperlipidemia Hypertension Denies family history of Prostate cancer Breast cancer Uterine cancer Thyroid disease Social History (Reviewed 02/02/25 @ 11:09 by KEYLA Wilson Smoking and tobacco/nicotine status: current every day tobacco/nicotine user (vape use) Physical Exam 2 Narrative: EXAM NARRATIVE: Alert oriented no acute distress. She ambulates normal gait. No signs of trauma to her head trunk or extremities in exposed areas. Skin appears normal in exposed areas. Normal conjunctiva. Pupils equal reactive to light. Speech is clear. Neck is supple. Abdomen soft nontender. Extremities warm well- perfused. No ataxia. Moves her arms and legs freely. Moist mucous membranes. No nasal drainage. Heart regular rhythm. Lung sounds are clear. Patient denies suicidal ideation. Course 2 Vital Signs: Vital signs: Vital Signs Temperature 98.5 F 02/07/25 13:39 Pulse Rate 87 02/07/25 13:39 Respiratory Rate 16 02/07/25 13:39 Blood Pressure 117/74 02/07/25 13:39 Pulse Oximetry 95 02/07/25 13:39 Oxygen Delivery Me thod Room Air 02/07/25 13:39 MDM - Abdominal Pain Medical Decision Making Patient presents with 96-hour hold signed by the finishing room supervisor. Patient has affidavit indicating paranoid delusions. Patient does demonstrate paranoid delusions here reporting people following her and people in the backseat of her car. Patient denies suicidal ideation. Denies drug use. Denies any physical complaints. She states she did have a cold for which she was treated with antibiotics but those symptoms have resolved. No fever. No nasal congestion cough. No headache. No chest pain or shortness of breath. No abdominal pain vomiting or diarrhea. Denies rash. Denies any pain or injury. Denies overdose or drug or alcohol use. Plan to obtain CBC CMP urine drug screen salicylate and acetaminophen level, TSH and test and admit to the psychiatric floor. Labs do not show significant acute abnormality. Alcohol level salicylate level and acetaminophen level are not elevated. I discussed with Dr. Pitts who accepts for admission. Lab Data 02/07/25 13:54 02/07/25 13:54 Labs/Radiology: Laboratory Results WBC 4.62 10^3/uL (3.29-11.43) 02/07/25 13:54 RBC 3.72 10^6/uL (3.85-5.65) L 02/07/25 13:54 Hgb 11.60 g/dL (11.27-16.99) 02/07/25 13:54 Hct 35.2 % (36-47) L 02/07/25 13:54 MCV 94.6 fl (85-98) 02/07/25 13:54 MCH 31.2 pg (27-33) 02/07/25 13:54 MCHC 33.0 g/dL (30-55) 02/07/25 13:54 RDW 12.7 % (12.1-15.1) 02/07/25 13:54 Plt Count 237 10^3/cmm (157-399) 02/07/25 13:54 MPV 9.2 fL (7.4-10.4) 02/07/25 13:54 Neut % (Auto) 43.8 % 02/07/25 13:54 Lymph % (Auto) 44.8 % 02/07/25 13:54 [place] % (Auto) 8.4 % 02/07/25 13:54 Eos % (Auto) 2.2 % 02/07/25 13:54 Baso % (Auto) 0.6 % 02/07/25 13:54 Neut # (Auto) 2.02 10^3/uL (1.8-7.7) 02/07/25 13:54 Lymph # (Auto) 2.1 10^3/uL (0.8-4.8) 02/07/25 13:54 [place] # (Auto) 0.4 10^3/uL (0.2-0.9) 02/07/25 13:54 Eos # (Auto) 0.1 10^3/uL (0.0-0.8) 02/07/25 13:54 Baso # (Auto) 0.0 10^3/uL (0.0-0.1) 02/07/25 13:54 Nucleated RBC % (auto) 0 % 02/07/25 13: Nucleated RBCs # 0.0 /100WBC 02/07/25 13:54 Sodium 139 mmol/L (136-145) 02/07/25 13:54 Potassium 3.7 mmol/L (3.5-5.1) 02/07/25 13:54 Chloride 108 mmol/L (98-107) H 02/07/25 13:54 Carbon Dioxide 20 mmol/L (22-29) L 02/07/25 13:54 Anion Gap 14.7 (5-19) 02/07/25 13:54 BUN 14 mg/dL (6-20) 02/07/25 13:54 Creatinine 0.6 mg/dL (0.5-0.9) 02/07/25 13:54 GFR Calculation 111.9 mL/min (90-130) 02/07/25 13:54 Glucose 118 mg/dL (65-115) H 02/07/25 13:54 Calculated Osmolality 290 mOsm/kg (285-295) 02/07/25 13:54 Calcium 9.0 mg/dL (8.5-10.5) 02/07/25 13:54 Total Bilirubin 0.2 mg/dL (0.15-1.2) 02/07/25 13:54 AST 23 U/L (0-32) 02/07/25 13:54 ALT 26 U/L (0-33) 02/07/25 13:54 Alkaline Phosphatase 42 U/L (35-105) 02/07/25 13:54 Total Protein 6.5 g/dL (6.6-8.7) L 02/07/25 13:54 Albumin 4.0 g/dL (3.5-5.2) 02/07/25 13:54 Globulin 2.5 g/dL (1.3-4.6) 02/07/25 13:54 TSH 1.52 uIU/mL (0.27-4.20) 02/07/25 13:54 HCG, Qual Negative (Negative) 02/07/25 13:54 Amorphous Sediment Not Reportable 02/07/25 13:38 Salicylates < 0.3 mg/dL (3-10) L 02/07/25 13:54 Urine Opiates Screen Negative ng/mL (Negative) 02/07/25 13:38 Acetaminophen < 5.0 ug/mL (10-30) L 02/07/25 13:54 Ur Barbiturates Screen Negative ng/mL (Negative) 02/07/25 13:38 Ur Phencyclidine Scrn Negative ng/mL (Negative) 02/07/25 13:38 Ur Amphetamines Screen Negative ng/mL (Negative) 02/07/25 13:38 U Benzodiazepines Scrn Negative ng/mL (Negative) 02/07/25 13:38 Urine Cocaine Screen Negative ng/mL (Negative) 02/07/25 13:38 U Marijuana (THC) Screen Negative ng/mL (Negative) 02/07/25 13:38 Ethyl Alcohol < 10 mg/dL (0-10) 02/07/25 13:54 No radiology studies performed this visit Discharge Plan Discharge Patient Disposition: Admitted As Inpatient Clinical Impression: Psychosis Condition: Stable Coding Level of Care Code ED [employer] for Anshu Taylor
[2025-02-07 13:39] VITALS: BP 117/74; PULSE 87; RESP 16; TEMP 36.9; O2SAT 95; BMI 26.1
--- NOTE | 2025-02-07 13:40 | PC.NURSE ---
Patient brought in by [facility] deputy. on a 96 hour hold. Involuntary 96 hour hold rights read and reviewed with patient. Nick reeder security present during reading of rights. Patient verbalized understandings and copy of rights given to patient.
[2025-02-07 14:01] LABS: Hematocrit 35.2 % (36-47); Hemoglobin 11.60 g/dL (11.27-16.99); Mean Corpuscular HGB Conc 33.0 g/dL (30-55); Mean Corpuscular Hemoglobin 31.2 pg (27-33); Mean Corpuscular Volume 94.6 fl (85-98); Nucleated Red Blood Cells % 0 %; Platelet Count 237 10^3/cmm (157-399); Red Blood Count 3.72 10^6/uL (3.85-5.65); White Blood Count 4.62 10^3/uL (3.29-11.43)
[2025-02-07 14:15] LABS: PCP Screen Urine Negative (Negative)
--- NOTE | 2025-02-07 14:21 | PC.PHAR ---
Pt picked up Suboxone 12-3 from [facility] this morning and took her 6am dose. Pt carried her afternoon dose with her to take later. Verified with [facility].
[2025-02-07 14:22] LABS: Glucose Urine UA Negative (Normal); Nitrate Urine Negative (Negative); Specific Gravity, Urine 1.007 (1.005-1.030)
[2025-02-07 14:30] LABS: Alanine Aminotransferase 26 U/L (0-33); Albumin Level 4.0 g/dL (3.5-5.2); Alkaline Phosphatase 42 U/L (35-105); Anion Gap 14.7 (5-19); Aspartate Amino Transferase 23 U/L (0-32); Blood Urea Nitrogen 14 mg/dL (6-20); Calcium 9.0 mg/dL (8.5-10.5); Carbon Dioxide 20 mmol/L (22-29); Chloride 108 mmol/L (98-107); Creatinine Clr Calc Pharmacy 125.8065; Globulin 2.5 g/dL (1.3-4.6); Glucose 118 mg/dL (65-115); Osmolality Calculated 290 mOsm/kg (285-295); Potassium 3.7 mmol/L (3.5-5.1); Sodium 139 mmol/L (136-145); Thyroid Stimulating Hormone 1.52 uIU/mL (0.27-4.20); Total Protein 6.5 g/dL (6.6-8.7)
[2025-02-07 14:32] LABS: Acetaminophen < 5.0 ug/mL (10-30); Alcohol Level < 10 mg/dL (0-10); Salicylate < 0.3 mg/dL (3-10)
[2025-02-07 14:36] LABS: HCG, Serum Qual Negative (Negative)
[2025-02-07 15:07] LABS: UA Manual Slide Review YES; UA Slide Review UA Slide Review Perf
--- NOTE | 2025-02-07 15:25 | ED.C_ITS ---
HPI - Psych 2 General: Chief Complaint: Psychiatric Symptoms Stated Complaint: mhe Time Seen by Provider: 02/07/25 13:26 Related Data Home Medications ?Medication ?Instructions ?Recorded ?Confirmed buprenorphine 12 mg-naloxone 3 mg See Rx Instructions .Route .COMPLEX 02/07/25 02/07/25 sublingual film (Suboxone) cetirizine 10 mg tablet 10 mg PO DAILY 02/07/2501/26 gabapentin 600 mg tablet 600 mg PO TID PRN nerve pain 02/07/25 02/07/25 propranolol 10 mg tablet 10 mg PO BID 02/07/25 Previous Rx's ?Medication ?Instructions ?Recorded amoxicillin 875 mg-potassium 1 tab PO BID #20 tabs 02/19 clavulanate 125 mg tablet Allergies Allergy/AdvReac Type Severity Reaction Status Date / Time naproxen Allergy Intermediate ALGY-Swell Verified 01/16/25 08:08 Lip/Tongue/Throat celecoxib (From Celebrex) Allergy Unknown Verified 01/16/25 08:08 [facility] ED 2 PFS: Medical History (Updated 02/10/25 @ 00:00 by CORINNE Pina) Asthma No pertinent past medical history neghx: dm, thyroid, dvt/pe PCP: None History of hypertension only during rehabilitation- 11/2024 Surgical History History of section (~2004) H/O tubal ligation (~2007) Hx of knee surgery x7-- arthroscopic-- reports cadaver ligaments and self hamstring History of bowel resection (~2011) Family History Grandfather Colon cancer Hypertension Heart disease Stroke Mother Diabetes Hypertension Ovarian cancer Grandmother Diabetes Hypertension Father Hyperlipidemia Hypertension Stroke Brother Hyperlipidemia Hypertension Denies family history of Prostate cancer Breast cancer Uterine cancer Thyroid disease Social History Smoking and tobacco/nicotine status: current every day tobacco/nicotine user (vape use) Course 2 Vital Signs: Vital signs: Vital Signs Temperature 98.4 F 02/11/25 14:00 Pulse Rate 79 02/11/25 14:00 Respiratory Rate 15 02/11/25 14:00 Blood Pressure 104/72 02/11/25 14:00 Pulse Oximetry 97 02/11/25 14:00 Oxygen Delivery Me thod Room Air 02/11/25 06:00 MDM - Psych Lab Data 02/07/25 13:54 02/07/25 13:54 Laboratory Results WBC 4.62 10^3/uL (3.29-11.43) 02/07/25 13:54 RBC 3.72 10^6/uL (3.85-5.65) L 02/07/25 13:54 Hgb 11.60 g/dL (11.27-16.99) 02/07/25 13:54 Hct 35.2 % (36-47) L 02/07/25 13:54 MCV 94.6 fl (85-98) 02/07/25 13:54 MCH 31.2 pg (27-33) 02/07/25 13:54 MCHC 33.0 g/dL (30-55) 02/07/25 13:54 RDW 12.7 % (12.1-15.1) 02/07/25 13:54 Plt Count 237 10^3/cmm (157-399) 02/07/25 13:54 MPV 9.2 fL (7.4-10.4) 02/07/25 13:54 Neut % (Auto) 43.8 % 02/07/25 13:54 Lymph % (Auto) 44.8 % 02/07/25 13:54 [place] % (Auto) 8.4 % 02/07/25 13:54 Eos % (Auto) 2.2 % 02/07/25 13:54 Baso % (Auto) 0.6 % 02/07/25 13:54 Neut # (Auto) 2.02 10^3/uL (1.8-7.7) 02/07/25 13:54 Lymph # (Auto) 2.1 10^3/uL (0.8-4.8) 02/07/25 13:54 [place] # (Auto) 0.4 10^3/uL (0.2-0.9) 02/07/25 13:54 Eos # (Auto) 0.1 10^3/uL (0.0-0.8) 02/07/25 13:54 Baso # (Auto) 0.0 10^3/uL (0.0-0.1) 02/07/25 13:54 Nucleated RBC % (auto) 0 % 02/07/25 13:54 Nucleated RBCs # 0.0 /100WBC 02/07/25 13:54 Sodium 139 mmol/L (136-145) 02/07/25 13:54 Potassium 3.7 mmol/L (3.5-5.1) 02/07/25 13:54 Chloride 108 mmol/L (98-107) H 02/07/25 13:54 Carbon Dioxide 20 mmol/L (22-29) L 02/07/25 13:54 Anion Gap 14.7 (5-19) 02/07/25 13:54 BUN 14 mg/dL (6-20) 02/07/25 13:54 Creatinine 0.6 mg/dL (0.5-0.9) 02/07/25 13:54 GFR Calculation 111.9 mL/min (90-130) 02/07/25 13:54 Glucose 118 mg/dL (65-115) H 02/07/25 13:54 Calculated Osmolality 290 mOsm/kg (285-295) 02/07/25 13:54 Calcium 9.0 mg/dL (8.5-10.5) 02/07/25 13:54 Total Bilirubin 0.2 mg/dL (0.15-1.2) 02/07/25 13:54 AST 23 U/L (0-32) 02/07/25 13:54 ALT 26 U/L (0-33) 02/07/25 13:54 Alkaline Phosphatase 42 U/L (35-105) 02/07/25 13:54 Total Protein 6.5 g/dL (6.6-8.7) L 02/07/25 13:54 Albumin 4.0 g/dL (3.5-5.2) 02/07/25 13:54 Globulin 2.5 g/dL (1.3-4.6) 02/07/25 13:54 TSH 1.52 uIU/mL (0.27-4.20) 02/07/25 13:54 HCG, Qual Negative (Negative) 02/07/25 13:54 Urine Color Yellow (Yellow) 02/07/25 13:38 Urine Appearance Cloudy (CLEAR) A 02/07/25 13:38 Urine pH 5.5 (5-7) 02/07/25 13:38 Ur Specific [place] 1.007 (1.005-1.030) 02/07/25 13:38 Urine Protein Negative (Negative) 02/07/25 13:38 Urine Glucose (UA) Negative (Normal) 02/07/25 13:38 Urine Ketones Negative (Negative) 02/07/25 13:38 Urine Blood Negative (Negative) 02/07/25 13:38 Urine Nitrate Negative (Negative) 02/07/25 13:38 Urine Bilirubin Negative (Negative) 02/07/25 13:38 Urine Urobilinogen 1.0 mg/dL (Negative) 02/07/25 13:38 Ur Leukocyte Esterase Trace (Negative) A 02/07/25 13:38 Urine RBC None /hpf (0-2) 02/07/25 13:38 Urine WBC 0-4 /hpf (0-5) H 02/07/25 13:38 Ur Squamous Epith Cells 11-20 /hpf (0-5) H 02/07/25 13:38 Amorphous Sediment Not Reportable 02/07/25 13:38 Urine Bacteria Trace /hpf (NONE) 02/07/25 13:38 Urine Yeast Trace /hpf 02/07/25 13:38 Urine Sperm 1+ /hpf 02/07/25 13:38 Salicylates < 0.3 mg/dL (3-10) L 02/07/25 13:54 Urine Opiates Screen Negative ng/mL (Negative) 02/07/25 13:38 Acetaminophen < 5.0 ug/mL (10-30) L 02/07/25 13:54 Ur Barbiturates Screen Negative ng/mL (Negative) 02/07/25 13:38 Ur Phencyclidine Scrn Negative ng/mL (Negative) 02/07/25 13:38 Ur Amphetamines Screen Negative ng/mL (Negative) 02/07/25 13:38 U Benzodiazepines Scrn Negative ng/mL (Negative) 02/07/25 13:38 Urine Cocaine Screen Negative ng/mL (Negative) 02/07/25 13:38 U Marijuana (THC) Screen Negative ng/mL (Negative) 02/07/25 13:38 Ethyl Alcohol < 10 mg/dL (0-10) 02/07/25 13:54 Discharge Plan Discharge Patient Disposition: Admitted As Inpatient Admit Provider: Eddie Pitts Clinical Impression: Psychosis Condition: Stable Coding Level of Care Code ED Supervisor [employer] for Anshu Taylor
[2025-02-07 16:05] VITALS: BP 121/75; PULSE 85; O2SAT 97
[2025-02-07 16:13] VITALS: BP 114/54; PULSE 71; RESP 16; TEMP 36.6; O2SAT 99
[2025-02-07] MEDS: buprenorphine-naloxone 4-1 mg Film 3 EACH SUBLINGUAL (19:25)
[2025-02-07 19:59] VITALS: BP 95/61; PULSE 65; RESP 16; TEMP 36.9; O2SAT 99
[2025-02-08 06:00] VITALS: BP 90/49; PULSE 77; RESP 16; TEMP 36.8; O2SAT 98
--- NOTE | 2025-02-08 08:14 | PC.NURSE ---
nicotine patch removed at bedtime on 02/07/2025.. new patch placed with morning meds at approx 0815.
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
--- NOTE | 2025-02-08 13:35 | PC.NURSE ---
Spoke with [facility] and it was stated that pt is taking Suboxone 12mg split. Dr. Pitts gave a v/o for Suboxone 4-1mg quantity of 3 BID. Order has been placed in the computer.
--- NOTE | 2025-02-08 13:48 | PC.NURSE ---
Pt states that she has not had a bm in about 4days and asked for something to help her. Dr. Pitts okayed MOM 30ml BID PRN.
[2025-02-08 14:00] VITALS: BP 111/75; PULSE 74; RESP 16; TEMP 37.3; O2SAT 97
[2025-02-08] MEDS: buprenorphine-naloxone 4-1 mg Film 3 EACH SUBLINGUAL ×2 (14:19→17:18)
[2025-02-08 22:00] VITALS: BP 106/66; PULSE 75; RESP 18; TEMP 36.9; O2SAT 97
[2025-02-09 06:00] VITALS: BP 91/54; PULSE 71; RESP 18; TEMP 37.1; O2SAT 95
[2025-02-09] MEDS: buprenorphine-naloxone 4-1 mg Film 3 EACH SUBLINGUAL ×2 (08:12→17:16)
--- NOTE | 2025-02-09 09:15 | NUR.SHIFT ---
Pt states that she slept good last night. She denies anxiety and depression. No reports of SI/HI or hallucinations. She did state that she feels like she is coming out of her manic state. She is feeling more calm and sleeping better. She made no reports of pain. She was calm and cooperative on assessment.
[2025-02-09 14:00] VITALS: BP 96/57; PULSE 62; RESP 16; TEMP 36.8; O2SAT 98
--- NOTE | 2025-02-09 15:03 | P.NPUPN_ITS ---
Subjective NPU 2 Subjective: Patient presented today reporting that she is doing a little better. She denied any side effects to the Invega and was restarted on her Lamictal as well. She reported that she felt better overall and denied any problems or side effects as well. We continue to discussed that we will take things a day at a time and figure out where to go from here. Mental Status Exam 2 MSE Comments: This is a slender white female in hospital scrubs with limited grooming and eye contact. No abnormal movements except for mild psychomotor agitation. Mostly cooperative with exam in mild to moderate distress. Her speech was increased in rate but normal in volume with normal rhythm and prosody. Mood described as fine, affect energetic. Thought process was linear and mostly organized. Thought content. Patient denied suicidal or homicidal ideation. She did not appear to be responding to internal stimuli. She denied auditory or visual hallucinations. There were no delusions reported but she had significant evidence of odd, paranoid and persecutory thinking. She was alert and oriented to person and place. Recent and remote memory appeared poor at this time. Her insight is poor. Judgment was poor. Impulse control was impaired as well. Vitals/I&O/Wt Last Vital Signs Temp 98.8 F 02/09/25 06:00 Pulse 71 02/09/25 06:00 Resp 18 02/09/25 06:00 BP 91/54 02/09/25 06:00 Pulse Ox 95 02/09/25 06:00 O2 Del Method Room Air 02/09/25 06:00 Data NPU 02/07/25 13:54 02/07/25 13:54 A&P Assessment and plan 1. Acute psychosis: 2. Drug-induced psychotic disorder: Plan: This is a 39-year-old white female who is known through a previous inpatient admission in September presents reporting that she has about 100-day sobriety and has some confusion as to why she is here at this point. She has a prior history of methamphetamine addiction and some cannabis use but had a negative UDS but comes on a 96-hour hold with concerns for possible manic behavior. She continues to speak in a way consistent with her last admission with paranoia about being followed however she does acknowledge that she has discontinued her medication. 1.? Recommend Abilify or Invega for psychosis. The patient reported that she had some side effect on the 5 mg dose so recommended Invega 6 mg p.o. daily. Started Invega 6 mg p.o. daily and Lamictal 25 mg p.o. twice daily. 2.? Recommend sober living treatment at the highest level of care to which the patient is willing to commit. 3.??Encourage individual, group and milieu therapy. 4.??Continue every 15 minute checks for safety. 5. Obtain collateral information. 6. Evaluate against the backdrop of 96-hour hold. PDMP PDMP Reviewed: Not Reviewed Involuntary Hold Information 2 Hold Status: Legal Status: 96 Hour Hold Date/Time Hold Expires: 9 6^02/13/25@1300 Attestations NPU 2 Medical Necessity Statement*: Inpatient hospitalization is medically necessary and the clinically appropriate intervention at this time. We will monitor medications and make changes as indicated. Likely length of stay 6-9 days. 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
--- NOTE | 2025-02-09 15:21 | PC.NURSE ---
Pt let this nurse know that she was developing a yeast infection from the antibiotic that she is taking. Spoke with Dr. Pitts and he stated to order Diflucan 150mg 1 tab po once. Order has been placed.
--- NOTE | 2025-02-09 19:02 | PC.NURSE ---
Dr. Pitts gave a v/o for Invega 6mg po daily give now and Lamictal 25mg po BID start now. Orders have been entered.
[2025-02-09] MEDS: paliperidone ER 6 mg Tablet PO (19:20)
[2025-02-09 19:42] VITALS: BP 107/67; PULSE 68; RESP 16; TEMP 36.9; O2SAT 97
[2025-02-10 06:00] VITALS: BP 93/57; PULSE 81; RESP 16; TEMP 37.1; O2SAT 97
[2025-02-10] MEDS: buprenorphine-naloxone 4-1 mg Film 3 EACH SUBLINGUAL ×2 (08:25→17:14)
[2025-02-10] MEDS: paliperidone ER 6 mg Tablet PO (08:25)
--- NOTE | 2025-02-10 09:46 | NUR.SHIFT ---
Pt states that she slept like a rock last night. She denies anxiety and depression this am. No reports of SI/HI or hallucinations. She rates her back pain a 2/10, but states that it is no big deal she figures it's how she slept last night. When she was at the nurses station getting her meds, she is visibly tired today. Has went to go lay back down.
--- NOTE | 2025-02-10 12:09 | P.NPUPN_ITS ---
Subjective NPU 2 Subjective: Patient presented today reporting that she is mostly doing okay. She reports that she is feeling better with the medication and endorsing appreciation and understanding for the interventions thus far. She denied any side effects of the medication and we discussed slowly titrating the Lamictal to avoid the risk for Muhammad-Dewey syndrome. Mental Status Exam 2 MSE Comments: This is a slender white female in hospital scrubs with limited grooming and eye contact. No abnormal movements except for mild psychomotor agitation. Mostly cooperative with exam in mild to moderate distress. Her speech was increased in rate but normal in volume with normal rhythm and prosody. Mood described as fine, affect energetic. Thought process was linear and mostly organized. Thought content. Patient denied suicidal or homicidal ideation. She did not appear to be responding to internal stimuli. She denied auditory or visual hallucinations. There were no delusions reported but she had significant evidence of odd, paranoid and persecutory thinking. She was alert and oriented to person and place. Recent and remote memory appeared poor at this time. Her insight is poor. Judgment was poor. Impulse control was impaired as well. Vitals/I&O/Wt Last Vital Signs Temp 98.8 F 02/10/25 06:00 Pulse 81 02/10/25 06:00 Resp 16 02/10/25 06:00 BP 93/57 02/10/25 06:00 Pulse Ox 97 02/10/25 06:00 O2 Del Method Room Air 02/10/25 06:00 Weight last 48 hrs Weight 75.296 kg Data NPU 02/07/25 13:54 02/07/25 13:54 A&P Assessment and plan 1. Acute psychosis: 2. Drug-induced psychotic disorder: Plan: This is a 39-year-old white female who is known through a previous inpatient admission in September presents reporting that she has about 100-day sobriety and has some confusion as to why she is here at this point. She has a prior history of methamphetamine addiction and some cannabis use but had a negative UDS but comes on a 96-hour hold with concerns for possible manic behavior. She continues to speak in a way consistent with her last admission with paranoia about being followed however she does acknowledge that she has discontinued her medication. 1.? Recommend Abilify or Invega for psychosis. The patient reported that she had some side effect on the 5 mg dose so recommended Invega 6 mg p.o. daily. Started Invega 6 mg p.o. daily and Lamictal 25 mg p.o. twice daily. 2.? Recommend sober living treatment at the highest level of care to which the patient is willing to commit. 3.??Encourage individual, group and milieu therapy. 4.??Continue every 15 minute checks for safety. 5. Obtain collateral information. 6. Evaluate against the backdrop of 96-hour hold. PDMP PDMP Reviewed: Not Reviewed Involuntary Hold Information 2 Hold Status: Legal Status: 96 Hour Hold Date/Time Hold Expires: 9 6^02/13/25@1300 Attestations NPU 2 Medical Necessity Statement*: Inpatient hospitalization is medically necessary and the clinically appropriate intervention at this time. We will monitor medications and make changes as indicated. Likely length of stay 5-8 days. 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
[2025-02-10 14:00] VITALS: BP 85/54; PULSE 66; RESP 17; TEMP 37.3; O2SAT 98
[2025-02-10 20:08] VITALS: BP 88/54; PULSE 64; RESP 16; TEMP 36.7; O2SAT 98
[2025-02-11 06:00] VITALS: BP 92/62; PULSE 69; RESP 16; TEMP 36.7; O2SAT 96
[2025-02-11] MEDS: paliperidone ER 6 mg Tablet PO (08:18)
[2025-02-11] MEDS: buprenorphine-naloxone 4-1 mg Film 3 EACH SUBLINGUAL ×2 (08:19→17:08)
[2025-02-11 14:00] VITALS: BP 104/72; PULSE 79; RESP 15; TEMP 36.9; O2SAT 97
--- NOTE | 2025-02-11 14:30 | P.NPUPN_ITS ---
Subjective NPU 2 Subjective: Patient presents today reporting that she is feeling better but did have some point where she was discussing having fullness of her tongue and Cogentin was added without improvement and Benadryl was also given shortly before this note was written and there were not results at that time. We discussed the possibility of the injection as a compromise with assurances that she would be taking her medication by allowing her to leave tomorrow. She denied any other side effects to medication. Mental Status Exam 2 MSE Comments: This is a slender white female in hospital scrubs with limited grooming and eye contact. No abnormal movements except for mild psychomotor agitation. Mostly cooperative with exam in mild to moderate distress. Her speech was increased in rate but normal in volume with normal rhythm and prosody. Mood described as fine, affect energetic. Thought process was linear and mostly organized. Thought content. Patient denied suicidal or homicidal ideation. She did not appear to be responding to internal stimuli. She denied auditory or visual hallucinations. There were no delusions reported but she had significant evidence of odd, paranoid and persecutory thinking. She was alert and oriented to person and place. Recent and remote memory appeared poor at this time. Her insight is poor. Judgment was poor. Impulse control was impaired as well. Vitals/I&O/Wt Last Vital Signs Temp 98.0 F 02/11/25 06:00 Pulse 69 02/11/25 06:00 Resp 16 02/11/25 06:00 BP 92/62 02/11/25 06:00 Pulse Ox 96 02/11/25 06:00 O2 Del Method Room Air 02/11/25 06:00 Weight last 48 hrs Weight 75.296 kg Data NPU 02/07/25 13:54 02/07/25 13:54 A&P Assessment and plan 1. Acute psychosis: 2. Drug-induced psychotic disorder: Plan: This is a 39-year-old white female who is known through a previous inpatient admission in September presents reporting that she has about 100-day sobriety and has some confusion as to why she is here at this point. She has a prior history of methamphetamine addiction and some cannabis use but had a negative UDS but comes on a 96-hour hold with concerns for possible manic behavior. She continues to speak in a way consistent with her last admission with paranoia about being followed however she does acknowledge that she has discontinued her medication. 1.? Recommend Abilify or Invega for psychosis. The patient reported that she had some side effect on the 5 mg dose so recommended Invega 6 mg p.o. daily. Started Invega 6 mg p.o. daily and Lamictal 25 mg p.o. twice daily. 2.? Recommend sober living treatment at the highest level of care to which the patient is willing to commit. 3.??Encourage individual, group and milieu therapy. 4.??Continue every 15 minute checks for safety. 5. Obtain collateral information. 6. Evaluate against the backdrop of 96-hour hold. PDMP PDMP Reviewed: Not Reviewed Involuntary Hold Information 2 Hold Status: Legal Status: 96 Hour Hold Date/Time Hold Expires: 9 6^02/13/25@1300 Attestations NPU 2 Medical Necessity Statement*: Inpatient hospitalization is medically necessary and the clinically appropriate intervention at this time. We will monitor medications and make changes as indicated. Likely length of stay 5-8 days. Coding Level of Care Code Acute Code for [facility] Diagnoses Acute psychosis F23 Drug-induced psychotic disorder F19.959
[2025-02-11] MEDS: diphenhydrAMINE 50 mg/mL SDV 1mL IM (17:00)
--- NOTE | 2025-02-11 18:03 | PC.NURSE ---
Patient at nurses station with c/o tongue swelling. Tongue appears normal size and is not obstructing. She does have sialorrhea. Diphehydramine 50 mg IM given in left deltoid. Patient tolerated well.
[2025-02-11 20:11] VITALS: BP 103/63; PULSE 63; RESP 16; TEMP 36.4; O2SAT 98
[2025-02-12 06:00] VITALS: BP 93/58; PULSE 80; RESP 16; O2SAT 97
[2025-02-12] MEDS: paliperidone ER 6 mg Tablet PO (07:51)
[2025-02-12] MEDS: buprenorphine-naloxone 4-1 mg Film 3 EACH SUBLINGUAL ×2 (07:52→17:34)
--- NOTE | 2025-02-12 13:06 | PC.NURSE ---
Dr. Pitts gave verbal order to decrease Invega 3mg PO QD.
--- NOTE | 2025-02-12 13:21 | P.NPUPN_ITS ---
Subjective NPU 2 Subjective: Patient presents today reporting that she is doing pretty well. She reports she is interested in getting the Invega Sustenna injection and we discussed the possibility of getting tomorrow but discussed that that would mean she would need to get a second injection within a week. We discussed the risks, benefits and alternatives of this versus the oral medication and she understood and agreed to proceed as documented in this note. She denied any side effects of the medication and she was optimistic about the possibility of discharge in the next day or so. Mental Status Exam 2 MSE Comments: This is a slender white female in hospital scrubs with limited grooming and eye contact. No abnormal movements except for mild psychomotor agitation. Mostly cooperative with exam in mild distress. Her speech was increased in rate but normal in volume with normal rhythm and prosody. Mood described as fine, affect congruent. Thought process was linear and mostly organized. Thought content. Patient denied suicidal or homicidal ideation. She did not appear to be responding to internal stimuli. She denied auditory or visual hallucinations. There were no delusions reported but she had significant evidence of odd, paranoid and persecutory thinking. She was alert and oriented to person and place. Recent and remote memory appeared poor at this time. Her insight is poor. Judgment was poor. Impulse control was impaired as well. Vitals/I&O/Wt Last Vital Signs Temp 97.5 F L 02/11/25 20:11 Pulse 80 02/12/25 06:00 Resp 16 02/12/25 06:00 BP 93/58 02/12/25 06:00 Pulse Ox 97 02/12/25 06:00 O2 Del Method Room Air 02/12/25 06:00 Data NPU 02/07/25 13:54 02/07/25 13:54 A&P Assessment and plan 1. Acute psychosis: 2. Drug-induced psychotic disorder: Plan: This is a 39-year-old white female who is known through a previous inpatient admission in September presents reporting that she has about 100-day sobriety and has some confusion as to why she is here at this point. She has a prior history of methamphetamine addiction and some cannabis use but had a negative UDS but comes on a 96-hour hold with concerns for possible manic behavior. She continues to speak in a way consistent with her last admission with paranoia about being followed however she does acknowledge that she has discontinued her medication. 1.? Recommend Abilify or Invega for psychosis. The patient reported that she had some side effect on the 5 mg dose so recommended Invega 6 mg p.o. daily. Started Invega 6 mg p.o. daily and Lamictal 25 mg p.o. twice daily. Plan on administrating Invega Sustenna injection tomorrow and possibly increase Invega to at discharge. 2.? Recommend sober living treatment at the highest level of care to which the patient is willing to commit. 3.??Encourage individual, group and milieu therapy. 4.??Continue every 15 minute checks for safety. 5. Obtain collateral information. 6. Evaluate against the backdrop of 96-hour hold. PDMP PDMP Reviewed: Not Reviewed Involuntary Hold Information 2 Hold Status: Legal Status: 96 Hour Hold Date/Time Hold Expires: 9 6^02/13/25@1300 Attestations NPU 2 Medical Necessity Statement*: Inpatient hospitalization is medically necessary and the clinically appropriate intervention at this time. We will monitor medications and make changes as indicated. Likely length of stay 1-2 days. Coding Level of Care Code Acute Code for [facility] Diagnoses Acute psychosis F23 Drug-induced psychotic disorder F19.959
[2025-02-12 14:00] VITALS: BP 101/65; PULSE 85; RESP 17; TEMP 36.6; O2SAT 98
[2025-02-12 22:00] VITALS: BP 92/58; PULSE 63; RESP 18; TEMP 36.6; O2SAT 96
[2025-02-13 06:00] VITALS: BP 76/45; PULSE 70; RESP 18; TEMP 37.4; O2SAT 99
[2025-02-13 06:39] VITALS: BP 84/50
[2025-02-13 06:40] VITALS: BP 85/49; BP 90/56
--- NOTE | 2025-02-13 07:46 | W.PM.NPUPNS ---
Subjective NPU Subjective: Patient presented today reporting that he is feeling better and optimistic about things moving forward. We discussed about transitioning her to the Invega Sustenna injection including the risks, benefits and alternatives she understood and agreed to proceed as is documented in this note. She said that her job opportunity 8 will be Wednesday it was still intact we discussed the importance of her being stable maintaining keep that job. She denied any thoughts of medication. Mental Status Exam MSE Comments: This is a slender white female in hospital scrubs with limited grooming and eye contact. No abnormal movements except for mild psychomotor agitation. Mostly cooperative with exam in mild distress. Her speech was increased in rate but normal in volume with normal rhythm and prosody. Mood described as fine, affect congruent. Thought process was linear and mostly organized. Thought content. Patient denied suicidal or homicidal ideation. She did not appear to be responding to internal stimuli. She denied auditory or visual hallucinations. There were no delusions reported but she had significant evidence of odd, paranoid and persecutory thinking. She was alert and oriented to person and place. Recent and remote memory appeared poor at this time. Her insight is poor. Judgment was poor. Impulse control was impaired as well. Vitals/I&O/Wt Last Vital Signs Temp 99.3 F 02/13/25 06:00 Pulse 70 02/13/25 06:00 Resp 18 02/13/25 06:00 BP 90/56 02/13/25 06:40 Pulse Ox 99 02/13/25 06:00 O2 Del Method Room Air 02/13/25 06:00 Data NPU 02/07/25 13:54 02/07/25 13:54 A&P Assessment and plan 1. Acute psychosis: 2. Drug-induced psychotic disorder: Plan: This is a 39-year-old white female who is known through a previous inpatient admission in September presents reporting that she has about 100-day sobriety and has some confusion as to why she is here at this point. She has a prior history of methamphetamine addiction and some cannabis use but had a negative UDS but comes on a 96-hour hold with concerns for possible manic behavior. She continues to speak in a way consistent with her last admission with paranoia about being followed however she does acknowledge that she has discontinued her medication. 1.? Recommend Abilify or Invega for psychosis. The patient reported that she had some side effect on the 5 mg dose so recommended Invega 6 mg p.o. daily. Started Invega 6 mg p.o. daily and Lamictal 25 mg p.o. twice daily. Plan on administrating Invega Sustenna injection tomorrow and possibly increase Invega to at discharge. 2.? Recommend sober living treatment at the highest level of care to which the patient is willing to commit. 3.??Encourage individual, group and milieu therapy. 4.??Continue every 15 minute checks for safety. 5. Obtain collateral information. 6. Evaluate against the backdrop of 96-hour hold. PDMP PDMP Reviewed: Not Reviewed Involuntary Hold Information Hold Status: Legal Status: 96 Hour Hold Date/Time Hold Expires: 96^02/13/25@1300 Attestations NPU Medical Necessity Statement*: Inpatient hospitalization is medically necessary and the clinically appropriate intervention at this time. We will monitor medications and make changes as indicated. Likely length of stay 5-8 days. Coding Level of Care Code Acute Code for [facility] Diagnoses Acute psychosis F23 Drug-induced psychotic disorder F19.959
[2025-02-13] MEDS: buprenorphine-naloxone 4-1 mg Film 3 EACH SUBLINGUAL (08:01)
[2025-02-13] MEDS: PALIPERIDONE PALMITATE 234 MG 234 EACH IM (13:19)
[2025-02-13 14:00] VITALS: BP 95/61; PULSE 80; RESP 18; TEMP 36.4; O2SAT 98
--- NOTE | 2025-02-13 15:32 | W.PM.NPUDCS ---
Diagnoses at Discharge Discharge Diagnosis 1. Acute psychosis: 2. Drug-induced psychotic disorder: Reason for Visit Reason for Visit: mhe Involuntary Hold Information Hold Status: Legal Status: 96 Hour Hold Date/Time Hold Expires: 96^02/13/25@1300 Mental Status Exam MSE Comments: This is a slender white female in hospital scrubs with limited grooming and eye contact. No abnormal movements except for mild psychomotor agitation. Mostly cooperative with exam in mild distress. Her speech was increased in rate but normal in volume with normal rhythm and prosody. Mood described as fine, affect congruent. Thought process was linear and mostly organized. Thought content. Patient denied suicidal or homicidal ideation. She did not appear to be responding to internal stimuli. She denied auditory or visual hallucinations. There were no delusions reported but she had significant evidence of odd, paranoid and persecutory thinking. She was alert and oriented to person and place. Recent and remote memory appeared poor at this time. Her insight is poor. Judgment was poor. Impulse control was impaired as well. Discharge Data Studies Completed and Pending: Laboratory Results WBC 4.62 10^3/uL (3.2 9-11.43) 02/07/25 13:54 RBC 3.72 10^6/uL (3.8 5-5.65) L 02/07/25 13:54 Hgb 11.60 g/dL (11.27 -16.99) 02/07/25 13:54 Hct 35.2 % (36-47) L 02/07/25 13:54 MCV 94.6 fl (85-98) 02/07/25 13:54 MCH 31.2 pg (27-33) 02/07/25 13:54 MCHC 33.0 g/dL (30-55) 02/07/25 13:54 RDW 12.7 % (12.1-15.1 ) 02/07/25 13:54 Plt Count 237 10^3/cmm (157 -399) 02/07/25 13:54 MPV 9.2 fL (7.4-10.4) 02/07/25 13:54 Neut % (Auto) 43.8 % 02/07/25 13:54 Lymph % (Auto) 44.8 % 02/07/25 13:54 Vernon % (Auto) 8.4 % 02/07/25 13:54 Eos % (Auto) 2.2 % 02/07/25 13:54 Baso % (Auto) 0.6 % 02/07/25 13:54 Neut # (Auto) 2.02 10^3/uL (1.8 -7.7) 02/07/25 13:54 Lymph # (Auto) 2.1 10^3/uL (0.8- 4.8) 02/07/25 13:54 Vernon # (Auto) 0.4 10^3/uL (0.2- 0.9) 02/07/25 13:54 Eos # (Auto) 0.1 10^3/uL (0.0- 0.8) 02/07/25 13:54 Baso # (Auto) 0.0 10^3/uL (0.0- 0.1) 02/07/25 13:54 Nucleated RBC % (a uto) 0 % 02/07/25 13:54 Nucleated RBCs # 0.0 /100WBC 02/07/25 13:54 Sodium 139 mmol/L (136-1 45) 02/07/25 13:54 Potassium 3.7 mmol/L (3.5-5 .1) 02/07/25 13:54 Chloride 108 mmol/L (98-10 7) H 02/07/25 13:54 Carbon Dioxide 20 mmol/L (22-29) L 02/07/25 13:54 Anion Gap 14.7 (5-19) 02/07/25 13:54 BUN 14 mg/dL (6-20) 02/07/25 13:54 Creatinine 0.6 mg/dL (0.5-0. 9) 02/07/25 13:54 GFR Calculation 111.9 mL/min (90- 130) 02/07/25 13:54 Glucose 118 mg/dL (65-115 ) H 02/07/25 13:54 Calculated Osmolal ity 290 mOsm/kg (285- 295) 02/07/25 13:54 Calcium 9.0 mg/dL (8.5-10 .5) 02/07/25 13:54 Total Bilirubin 0.2 mg/dL (0.15-1 .2) 02/07/25 13:54 AST 23 U/L (0-32) 02/07/25 13:54 ALT 26 U/L (0-33) 02/07/25 13:54 Alkaline Phosphata se 42 U/L (35-105) 02/07/25 13:54 Total Protein 6.5 g/dL (6.6-8.7 ) L 02/07/25 13:54 Albumin 4.0 g/dL (3.5-5.2 ) 02/07/25 13:54 Globulin 2.5 g/dL (1.3-4.6 ) 02/07/25 13:54 TSH 1.52 uIU/mL (0.27 -4.20) 02/07/25 13:54 HCG, Qual Negative (Negati ve) 02/07/25 13:54 Urine Color Yellow (Yellow) 02/07/25 13:38 Urine Appearance Cloudy (CLEAR) A 02/07/25 13:38 Urine pH 5.5 (5-7) 02/07/25 13:38 Ur Specific Gravit y 1.007 (1.005-1.0 30) 02/07/25 13:38 Urine Protein Negative (Negati ve) 02/07/25 13:38 Urine Glucose (UA) Negative (Normal ) 02/07/25 13:38 Urine Ketones Negative (Negati ve) 02/07/25 13:38 Urine Blood Negative (Negati ve) 02/07/25 13:38 Urine Nitrate Negative (Negati ve) 02/07/25 13:38 Urine Bilirubin Negative (Negati ve) 02/07/25 13:38 Urine Urobilinogen 1.0 mg/dL (Negati ve) 02/07/25 13:38 Ur Leukocyte Halley ase Trace (Negative) A 02/07/25 13:38 Urine RBC None /hpf (0-2) 02/07/25 13:38 Urine WBC 0-4 /hpf (0-5) H 02/07/25 13:38 Ur Squamous Epith Cells 11-20 /hpf (0-5) H 02/07/25 13:38 Amorphous Sediment Not Reportable 02/07/25 13:38 Urine Bacteria Trace /hpf (NONE) 02/07/25 13:38 Urine Yeast Trace /hpf 02/07/25 13:38 Urine Sperm 1+ /hpf 02/07/25 13:38 Salicylates < 0.3 mg/dL (3-10 ) L 02/07/25 13:54 Urine Opiates Scre en Negative ng/mL (N egative) 02/07/25 13:38 Acetaminophen < 5.0 ug/mL (10-3 0) L 02/07/25 13:54 Ur Barbiturates Sc reen Negative ng/mL (N egative) 02/07/25 13:38 Ur Phencyclidine S crn Negative ng/mL (N egative) 02/07/25 13:38 Ur Amphetamines Sc reen Negative ng/mL (N egative) 02/07/25 13:38 U Benzodiazepines Scrn Negative ng/mL (N egative) 02/07/25 13:38 Urine Cocaine Scre en Negative ng/mL (N egative) 02/07/25 13:38 U Marijuana (THC) Screen Negative ng/mL (N egative) 02/07/25 13:38 Ethyl Alcohol < 10 mg/dL (0-10) 02/07/25 13:54 Vitals: Last Vital Signs Temp 99.3 F 02/13/25 06:00 Pulse 70 02/13/25 06:00 Resp 18 02/13/25 06:00 BP 90/56 02/13/25 06:40 Pulse Ox 99 02/13/25 06:00 O2 Del Method Room Air 02/13/25 06:00 Discharge Plan Discharge Patient Disposition: Home Condition: Stable Prescriptions: New Invega Sustenna 156 mg/mL syringe 156 mg IM Q30D 30 Days Qty: 1 2RF Rx Instructions: Next injection 02/20/2025 then as directed paliperidone 3 mg Tablet Extended Release 24hr 3 mg PO DAILY 7 Days Qty: 7 0RF Continued gabapentin 600 mg tablet 600 mg PO TID PRN (Reason: nerve pain) cetirizine 10 mg tablet 10 mg PO DAILY propranolol 10 mg tablet 10 mg PO BID buprenorphine-naloxone [Suboxone] 12-3 mg Film See Rx Instructions .ROUTE .COMPLEX Rx Instructions: Take 1 film sublingually in the morning and afternoon. Discontinued amoxicillin-pot clavulanate 875-125 mg tablet 1 tab PO BID Qty: 20 0RF Discharge Order = DC NOW: Discharge Order (Routine); Ordered 02/13/25 Ordered By: Eddie Pitts Referrals: [facility] [Other] - 02/14/25 6:00 am Referral Note: Come in for suboxone between 6am and 12pm. [facility] [Outside] - 02/14/25 12:30 pm Referral Note: Initial assessment for services with Sarah Discharge Diet: Regular Discharge Activity: Resume usual activity Patient Instructions: Opioid Safety, Patient Portal & Alejandrina Instructions Discharge Attestations NPU Time Spent in Discharge Care*: less than 30 min Specific Discharge Activities: Specific discharge activities: educating patient, discussing with rn case manager/social workers/dc planners, documenting/other paperwork and evaluating patient/reviewing data Coding Level of Care Code Acute Code for [facility] Diagnoses Acute psychosis F23 Drug-induced psychotic disorder F19.959
[2025-02-13 15:50] VITALS: BP 90/56; PULSE 70; RESP 18; TEMP 36.8; O2SAT 99
== END 2025-02-13 17:30 | disposition home or self-care (01) | DRG 885 ==
LOC: ER 14:47 → NP 15:26
PROVIDERS: Physician Assistant; Admitting Provider Psychiatry & Neurology Psychiatry; Emergency Provider Emergency Medicine; Visit Provider Psychiatry & Neurology Psychiatry
DX: F23 Brief psychotic disorder (principal); J45.909 Unspecified asthma, uncomplicated; Z91.148 Patient's other noncompliance with medication regimen for other reason; F17.290 Nicotine dependence, other tobacco product, uncomplicated; Z88.8 Allergy status to other drugs, medicaments and biological substances; Z83.3 Family history of diabetes mellitus; Z82.3 Family history of stroke; Z80.0 Family history of malignant neoplasm of digestive organs; Z82.49 Family history of ischemic heart disease and other diseases of the circulatory system; Z83.49 Family history of other endocrine, nutritional and metabolic diseases; Z80.41 Family history of malignant neoplasm of ovary
CPT/HCPCS: 36415; 80053; 80306; 80307; 81001; 84443; 84703; 85025; 90935; 96372; 97150; 97165; 99285; J0573; J1200; J9999

== ENCOUNTER → 2025-03-22 15:00 | Outpatient (BNVA) | payer MEDICAID, SELFPAY | PROVIDERS: Visit Provider Obstetrics & Gynecology | DX: N64.52 Nipple discharge (principal); N91.2 Amenorrhea, unspecified | CPT/HCPCS: 84146; 84443 ==

== ENCOUNTER → 2025-03-23 11:45 | Outpatient (BNVA) | payer OTHER, SELFPAY | PROVIDERS: Visit Provider Psychiatry & Neurology Psychiatry | DX: F11.20 Opioid dependence, uncomplicated (principal); F15.21 Other stimulant dependence, in remission; Z79.899 Other long term (current) drug therapy | CPT/HCPCS: 80307 ==

== ENCOUNTER → 2025-04-03 15:06 | Outpatient (BNVA) | payer SELFPAY | PROVIDERS: Visit Provider Psychiatry & Neurology Psychiatry | DX: F15.21 Other stimulant dependence, in remission (principal); F11.20 Opioid dependence, uncomplicated; Z79.899 Other long term (current) drug therapy | CPT/HCPCS: 80307 ==

== ENCOUNTER → 2025-05-01 11:20 | Outpatient (BNVA) | payer MEDICAID, SELFPAY | PROVIDERS: Visit Provider Psychiatry & Neurology Psychiatry | DX: F15.21 Other stimulant dependence, in remission (principal); F11.20 Opioid dependence, uncomplicated; Z79.899 Other long term (current) drug therapy | CPT/HCPCS: 80307 ==

== ENCOUNTER 2025-05-15 13:35 | Outpatient (CLI) | payer MEDICAID, SELFPAY ==
--- NOTE | 2025-05-15 13:40 | XR_ITS ---
WS: [id number] XR knee RT 3V* [id number] REASON FOR EXAM: M25.561 - Pain in right knee FINDINGS: No fracture or focal bone lesion. Multiple anchors are seen over the femoral condyles and proximal tibia. Significant narrowing of the medial knee joint space, essentially [id number] with significant subchondral sclerosis and cystic change and significant osteophytosis. Severe narrowing of the lateral aspect of the lateral joint space with [id number] articulation. Moderate subchondral sclerosis with significant osteophytosis. Significant narrowing of the patellofemoral joint space with moderate to significant subchondral sclerosis and osteophytosis of the patella. Significant osteophytosis of the opposing femoral condyles. XR/XR knee RT 3V* [id number] IMPRESSION: Severe osteoarthritis postoperative right knee.
== END 2025-05-15 13:36 | disposition home or self-care (01) ==
PROVIDERS: PCP Nurse Practitioner Family; Visit Provider Nurse Practitioner Family
DX: M17.11 Unilateral primary osteoarthritis, right knee (principal); Z98.890 Other specified postprocedural states; M89.8X8 Other specified disorders of bone, other site; M25.761 Osteophyte, right knee; M25.861 Other specified joint disorders, right knee
CPT/HCPCS: 73562

== ENCOUNTER → 2025-05-18 08:47 | Outpatient (BNVA) | payer MEDICAID, SELFPAY | PROVIDERS: PCP Nurse Practitioner Family; Visit Provider Nurse Practitioner | DX: Z01.89 Encounter for other specified special examinations (principal); F15.21 Other stimulant dependence, in remission; F11.20 Opioid dependence, uncomplicated | CPT/HCPCS: 80307 ==